=== PATIENT | female | born 1960 | race American Indian/Alaskan Native ===

== ENCOUNTER 2016-11-10 00:45 | Inpatient (IN) | payer OTHER ==
[2016-11-10 00:46] VITALS: BMI 23.0
[2016-11-10] MEDS ORDERED: Nitroglycerin 2% Ointment Foilpak UD TOP STA (01:15)
[2016-11-10] MEDS ORDERED: Nitroglycerin 2% Ointment Foilpak UD TOP ONE (01:16)
--- NOTE | 2016-11-10 01:18 | C.PDOC ---
History Of Present Illness A 55 y/o F c/o anterior chest pain for a hour and a half. Notes pain as pressure to the chest that is more on the right. Denies SOB, palpitations, lightheadedness, weakness, numbness, or any other complaints. Time Seen by Provider: 11/10/16 01:20 Chief Complaint (Nursing): Chest Pain History Per: Patient History/Exam Limitations: no limitations Onset/Duration Of Symptoms: Hrs (hour and a half) Current Symptoms Are (Timing): Still Present Severity: Mild Nitro Therapy Administered: 3, Per EMS, Partial Relief Additional History Per: Patient Past Medical History Reviewed: Historical Data, Nursing Documentation, Vital Signs Vital Signs: Last Vital Signs Temp 97.8 F 11/10/16 00:52 Pulse 70 11/10/16 02:13 Resp 14 11/10/16 02:13 BP 136/83 11/10/16 02:13 Pulse Ox 96 11/10/16 02:13 - Medical History PMH: Anemia, Asthma, Fibromyalgia, Fractures (RIGHT ARM), HTN, Peripheral Edema (DUE TO FIBROMYALGIA) Denies: Chronic Kidney Disease Surgical History: Endoscopy - Urlist Procedures ENDOSC POLYPECTOMY OF LG INTEST (07/20/99) ESOPHAGOGASTRODUODENOSCOPY [EGD] W/CLOSED BIOPSY (07/20/99) LAPAROSCOPIC ROBOTIC ASSISTED PROCEDURE (02/11/14) LAPAROSCOPIC TOTAL ABDOMINAL HYSTERECTOMY (02/11/14) PACKED CELL TRANSFUSION (01/09/14) Family History: States: Unknown Family Hx - Social History Hx Tobacco Use: No Hx Alcohol Use: Yes Hx Substance Use: No - Immunization History Hx Tetanus Toxoid Vaccination: No Hx Influenza Vaccination: No Hx Pneumococcal Vaccination: No Review Of Systems Except As Marked, All Systems Reviewed And Found Negative. Cardiovascular: Positive for: Chest Pain. Negative for: Palpitations, Light Headedness Respiratory: Negative for: Shortness of Breath Neurological: Negative for: Weakness, Numbness Physical Exam - Physical Exam Appears: Non-toxic, In Acute Distress (Mild distress) Skin: Warm, Dry Head: Atraumatic, Normacephalic Chest: Tenderness (Tenderness to palpation to the anterior chest wall) Cardiovascular: Rhythm Regular Respiratory: Normal Breath Sounds, No Rales, No Rhonchi, No Wheezing Extremity: Normal ROM, No Tenderness Neurological/Psych: Oriented x3, Normal Speech, Normal Cognition ED Course And Treatment - Laboratory Results Result Diagrams: 11/10/16 01:21 11/10/16 01:21 ECG: Interpreted By Me, Viewed By Me ECG Rhythm: Sinus Rhythm ECG Interpretation: No Acute Changes Interpretation Of ECG: NSR, poor R-wave progression V! to V4, borderline tracings Rate From EC O2 Sat by Pulse Oximetry: 97 (RA) Pulse Ox Interpretation: Normal Medical Decision Making Medical Decision Making: Impression: A 55 y/o F c/o anterior chest pain for a hour and a half. Plans: -CXR -EKG -Blood labs -CXR -Toradol -Nitro -IV fluids Nitro glycerin x4 and 324 aspirin given in the field by ALS. Disposition Discussed With Dr.: Donald Powell Doctor Will See Patient In The: Hospital Counseled Patient/Family Regarding: Diagnosis - Disposition Disposition: HOSPITALIZED Disposition Time: 02:52 Condition: STABLE Forms: [facility] (Portuguese) - POA Present On Arrival: None - Clinical Impression Clinical Impression: Chest pain - Scribe Statement The provider has reviewed the documentation as recorded by the Scribe Melody mahan All medical record entries made by the Scribe were at my direction and personally dictated by me. I have reviewed the chart and agree that the record accurately reflects my personal performance of the history, physical exam, medical decision making, and the department course for this patient. I have also personally directed, reviewed, and agree with the discharge instructions and disposition.
[2016-11-10 01:26] LABS: BASO # 0.1 K/uL (0.0-0.2); BASO % 0.5 % (0.0-2.0); EOS # 0.1 K/uL (0.0-0.7); EOS % 0.8 % (0.0-4.0); HEMOGLOBIN 14.6 g/dL (11.0-16.0); LYMPH # 3.2 K/uL (1.0-4.3); LYMPH % 30.2 % (20.0-40.0); MEAN CELL VOLUME 82.1 fL (81.0-99.0); MEAN CORPUSCULAR HEMOGLOBIN 28.1 pg (27.0-31.0); MEAN CORPUSCULAR HGB CONC 34.2 g/dL (33.0-37.0); MEAN PLATELET VOLUME 10.3 fL (7.2-11.7); MONO # 0.7 K/uL (0.0-0.8); MONO % 6.2 % (0.0-10.0); NEUT # 6.6 K/uL (1.8-7.0); NEUT % 62.3 % (50.0-75.0); NRBC % 0.1 % (0.0-2.0); RBC 5.2 Mil/uL (3.80-5.20); RED CELL DISTRIBUTION WIDTH 14.1 % (11.5-14.5); WHITE BLOOD COUNT 10.5 K/uL (4.8-10.8)
[2016-11-10 01:37] LABS: SQUAMOUS EPITHIAL 3 /hpf (0-5); URINE BILIRUBIN NEGATIVE (NEGATIVE); URINE BLOOD 1+ (NEGATIVE); URINE CLARITY Clear (Clear); URINE COLOR Straw (YELLOW); URINE GLUCOSE (UA) NORMAL (Normal); URINE LEUKOCYTE ESTERASE NEG Leu/uL (Negative); URINE NITRATE NEGATIVE (NEGATIVE); URINE PROTEIN NEGATIVE (NEGATIVE); URINE UROBILINOGEN NORMAL mg/dL (0.2-1.0)
[2016-11-10 01:41] LABS: ALBUMIN 3.9 g/dL (3.5-5.0)
[2016-11-10 01:43] LABS: GFR AFRICAN-AMERICAN > 60; GFR NON-AFRICAN AMERICAN > 60
[2016-11-10 01:44] LABS: ALB/GLOB RATIO 1.1 (1.0-2.1); ALT/SGPT 21 U/L (9-52); AST/SGOT 22 U/L (14-36); BLOOD UREA NITROGEN 12 mg/dL (7-17)
[2016-11-10 01:45] LABS: CALCIUM 9.6 mg/dl (8.6-10.4)
[2016-11-10] MEDS ORDERED: Potassium Chloride 20 mEq ER Tab PO STA (02:12)
[2016-11-10] MEDS ORDERED: Potassium Chloride 20 mEq ER Tab PO ONE (02:20)
--- NOTE | 2016-11-10 02:49 | RAD ---
EXAM: XR Chest, 1 View CLINICAL HISTORY: 55 years old, female; Pain; Chest pain TECHNIQUE: Frontal view of the chest. EXAM DATE/TIME: 11/10/2016 1:15 AM COMPARISON: CR - CHEST TWO VIEWS (PA/LAT) 06/14/2015 4:23:19 PM FINDINGS: The mediastinal cardiac silouette is normal in size and unchanged. The lungs appears similar to prior study. No effusions are identified. Again seen is mild levoscoliosis. IMPRESSION: No acute findings.
--- NOTE | 2016-11-10 04:01 | CP.PCM.HP ---
<Evens Mayer - Last Filed: 11/10/16 09:19> History of Present Illness - History of Present Illness History of Present Illness: CC: chest pain since 1:00 am HPI: Patient is a 55 year old female with PMHx Anemia, Asthma, Fibromyalgia, HTN, LE Peripheral Neuropathy (s/p hysterectomy) - who comes in to the emergency department complaining of chest pain that began around 1:00 am this morning. The patient reports that she was lying in bed and when she got up to use the bathroom the pain suddenly came on. Patient describes the pain as sharp, located primarily on the right side of her chest and rates it a 7/10. It is exacerbated by deep inspiration, and she denies any radiation of pain. While in transit to the hospital, patient reports she received Nitroglycerin x3 which she states made the pain better and currently describes her pain as more diffuse and rated 3/10. Patient also reports that she experienced shortness of breath associated with the chest pain. Patient also complains of a rash on the extensor surface of the right wrist. Patient admits to headaches for the past 3 days, which she attributes to her uncontrolled BP for the past 3 days (measured at home). Patient also c/o rash on wrist, mild gas pain in all quadrants, mild low back pain. Patient denies fevers, chills, cough, nausea, vomiting, constipation or diarrhea, any additional complaints. ED Course: Nitro glycerin x4 and 324 aspirin given in the field by ALS. Kdur 20 ; Toradol 30 IVP PMHx: Anemia, Asthma, Fibromyalgia, HTN, LE Peripheral Neuropathy (s/p hysterectomy) PSHx: Partial Hysterectomy 2013 Meds: Lopressor 100mg PO qd; HCTZ 12.5mg PO qd; Albuterol HFA 2puff PRN Allergies: NKDA FamHx: Mom CHF (alive, 90's); Dad Colon CA ( 56); Sister renal CA ( 56) ; Sister Uterine CA (alive, diagnosed recently at 62). SocHx: Denies tobacco or illicit drug use. Lives with family. Works as director of [employer]. PMD: Renee Cazares ([facility]) Review of Systems: -Gen: +headache. denies fever, chills, lethargy, weakness, dizziness. -HEENT: denies change in vision, change in hearing, sore throat, dysphagia, congestion. -Cardio: +chest pain; +SOB denies palpitations, lower extremity edema, orthopnea. -Resp: +SOB, +mucous (mild), +cough (mild), +pain on inspiration; denies hemoptysis, wheezing, congestion. -GI: pt denies abdominal pain, nausea/vomiting, diarrhea/constipation, hematochezia. -: pt denies dysuria, urinary freq, incontinence, hematuria, change in urinary stream. -MSK: denies back pain, muscle weakness, radiating pain. -Skin: +rash R wrist; denies itching, lesions. -Neuro: denies confusion, numbness, tingling, focal weakness, radicular pain, syncope. -Psych: denies anxiety, depression, H/I, S/I, hallucinations. Present on Admission - Present on Admission Any Indicators Present on Admission: No Past Patient History - Tetanus Immunizations Tetanus Immunization: Unknown - Past Medical History & Family History Past Medical History?: Yes - Past Social History Smoking Status: Former Smoker - CARDIAC Hx Hypertension: Yes Hx Peripheral Edema: Yes (DUE TO FIBROMYALGIA) - PULMONARY Hx Asthma: Yes - NEUROLOGICAL Hx Neurological Disorder: No - HEENT Hx HEENT Problems: No - RENAL Hx Chronic Kidney Disease: No - ENDOCRINE/METABOLIC Hx Endocrine Disorders: No - HEMATOLOGICAL/ONCOLOGICAL Hx Anemia: Yes - INTEGUMENTARY Hx Dermatological Problems: Yes Hx Eczema: Yes (ARMS) - MUSCULOSKELETAL/RHEUMATOLOGICAL Hx Fractures: Yes (RIGHT ARM) - GASTROINTESTINAL Hx Gastrointestinal Disorders: No - GENITOURINARY/GYNECOLOGICAL Hx Genitourinary Disorders: Yes Other/Comment: FIBROID UTERUS, Fibromyalgia - PSYCHIATRIC Hx Substance Use: No - SURGICAL HISTORY Hx Hysterectomy: Yes - ANESTHESIA Hx Anesthesia: Yes Hx Anesthesia Reactions: Yes (VOMITTING/NAUSEA) Hx Malignant Hyperthermia: No Meds Allergies/Adverse Reactions: Allergies Allergy/AdvReac Type Severity Reaction Status Date / Time No Known Allergies Allergy Verified 11/10/16 00:57 Physical Exam - Constitutional Appears: Non-toxic, No Acute Distress - Head Exam Head Exam: ATRAUMATIC, NORMAL INSPECTION - Eye Exam Eye Exam: EOMI, Normal appearance, PERRL - ENT Exam ENT Exam: Mucous Membranes Moist - Neck Exam Neck exam: Negative for: Lymphadenopathy, Tenderness - Respiratory Exam Respiratory Exam: Clear to Auscultation Bilateral, NORMAL BREATHING PATTERN. absent: Rales, Rhonchi, Wheezes - Cardiovascular Exam Cardiovascular Exam: Bradycardia, +S1, +S2 - GI/Abdominal Exam GI & Abdominal Exam: Normal Bowel Sounds, Soft, Tenderness (mild tenderness in all 4 quadrants) - Extremities Exam Extremities exam: Positive for: normal inspection. Negative for: pedal edema, tenderness - Back Exam Back exam: NORMAL INSPECTION, tenderness (chronic, related to fibromyalgia). absent: CVA tenderness (L), CVA tenderness (R) - Neurological Exam Neurological exam: Alert, CN II-XII Intact, Oriented x3 - Psychiatric Exam Psychiatric exam: Normal Affect, Normal Mood - Skin Skin Exam: Dry, Intact, Normal Color, Warm Additional comments: rash on lateral R wrist, extensor surface 2cm x 2cm Results - Vital Signs Recent Vital Signs: Last Vital Signs Temp 97.5 F L 11/10/16 03:55 Pulse 56 L 11/10/16 03:55 Resp 20 11/10/16 03:55 BP 150/93 H 11/10/16 03:55 Pulse Ox 97 11/10/16 03:55 - Labs Result Diagrams: 11/10/16 07:07 11/10/16 07:07 Assessment & Plan - Assessment and Plan (Free Text) Assessment: Chest Pain * ED Course: Nitro glycerin x4 and 324 aspirin given in the field by ALS. Kdur 20; Toradol 30 IVP * CXR - negative * EKG - NSR, poor R-wave progression V1 to V4. Meets minimal voltage criteria for LVH. * Troponin negative x1, Ddimer <200 * f/u ROMIs + EKG x2 * f/u BNP, A1c, TSH, free T4, Lipids * ASA 81mg PO; Tylenol 650mg PO Q6H, PRN pain * Cardiology consult, Ameen, f/u recs * f/u Echo Hypertension * BP 186/114 on admission * Continue home meds: Lopressor 100mg PO qd; HCTZ 12.5mg PO qd * Start Lisinopril 2.5mg PO qd * monitor Asthma * Utilizes inhaler 2x per week during day. 1x per month at night. * Home med: Albuterol HFA 2puff PRN * monitor Prophylaxis * SCDs * Heparin 5k SC Q8 * Pepcid 20mg PO BID * Heart healthy diet - Date & Time Date: 11/10/16 Time: 04:00 <Donald Powell P - Last Filed: 11/11/16 06:13> Results - Vital Signs Recent Vital Signs: Last Vital Signs Temp 97.5 F L 11/10/16 03:55 Pulse 56 L 11/10/16 04:00 Resp 20 11/10/16 03:55 BP 150/93 H 11/10/16 03:55 Pulse Ox 97 11/10/16 03:55 - Labs Result Diagrams: 11/10/16 07:07 11/10/16 07:07 Attending/Attestation - Attestation I have personally seen and examined this patient.: Yes I have fully participated in the care of the patient.: Yes I have reviewed all pertinent clinical information: Yes Notes (Text): Assessment * Non reproducible sternal chest pain, negative initial troponin and or ischemia on EKG, DD of gerd esophageal spasm * LVH on EKG, with h/o htn, leg edema b/l suggestive of early htn related cardiomyopathy/chf * Head ache likely from nitro Plan * Serial enzymes * Echo * With LVH, leg edema, would be candidate for YASMINE * Empiric protonix, maalox, zofran
[2016-11-10] MEDS ORDERED: Albuterol HFA 90 mcg/actuation (8 g) IH PRN ×2 (04:25→16:15)
[2016-11-10] MEDS ORDERED: Pantoprazole 40 mg EC Tab PO ONE (06:15)
[2016-11-10] MEDS ORDERED: Aluminum Hydroxide/Magnesium Hydroxide Susp (30 mL) PO ONE (06:16)
[2016-11-10] MEDS ORDERED: Sodium Chloride 0.9% 1,000 ML IV ONE (06:48)
[2016-11-10 07:23] LABS: BASO % 0.5 % (0.0-2.0); EOS # 0.1 K/uL (0.0-0.7); EOS % 0.7 % (0.0-4.0); HEMOGLOBIN 13.9 g/dL (11.0-16.0); LYMPH # 2.3 K/uL (1.0-4.3); LYMPH % 25.8 % (20.0-40.0); MEAN CELL VOLUME 82.8 fL (81.0-99.0); MEAN CORPUSCULAR HGB CONC 33.8 g/dL (33.0-37.0); MEAN PLATELET VOLUME 10.3 fL (7.2-11.7); MONO # 0.6 K/uL (0.0-0.8); MONO % 7.4 % (0.0-10.0); NEUT # 5.8 K/uL (1.8-7.0); NEUT % 65.6 % (50.0-75.0); NRBC % 0.1 % (0.0-2.0); RBC 4.97 Mil/uL (3.80-5.20); RED CELL DISTRIBUTION WIDTH 14.2 % (11.5-14.5); WHITE BLOOD COUNT 8.8 K/uL (4.8-10.8)
[2016-11-10 07:37] LABS: ALBUMIN 3.6 g/dL (3.5-5.0)
[2016-11-10 07:40] LABS: ALB/GLOB RATIO 1.1 (1.0-2.1); ALT/SGPT 22 U/L (9-52); AST/SGOT 22 U/L (14-36); BLOOD UREA NITROGEN 11 mg/dL (7-17); GFR AFRICAN-AMERICAN > 60; GFR NON-AFRICAN AMERICAN > 60
[2016-11-10 07:41] LABS: CALCIUM 9.5 mg/dl (8.6-10.4); HDL CHOLESTEROL 51 mg/dL (30-70); MAGNESIUM 1.8 mg/dL (1.6-2.3)
[2016-11-10 07:52] LABS: LDL CHOLESTEROL 94 mg/dL (0-129)
[2016-11-10 09:26] LABS: CK-MB 0.76 ng/mL (0.0-3.38)
--- NOTE | 2016-11-10 10:16 | CP.PCM.CON ---
History of Present Illness - History of Present Illness History of Present Illness: Admitted with chest pain in the precordial region sharp without exacerbating factors Past history of asthma and systemic hypertension Past Patient History - Tetanus Immunizations Tetanus Immunization: Unknown - Past Medical History & Family History Past Medical History?: Yes - Past Social History Smoking Status: Former Smoker - CARDIAC Hx Hypertension: Yes Hx Peripheral Edema: Yes (DUE TO FIBROMYALGIA) - PULMONARY Hx Asthma: Yes - NEUROLOGICAL Hx Neurological Disorder: No - HEENT Hx HEENT Problems: No - RENAL Hx Chronic Kidney Disease: No - ENDOCRINE/METABOLIC Hx Endocrine Disorders: No - HEMATOLOGICAL/ONCOLOGICAL Hx Anemia: Yes - INTEGUMENTARY Hx Dermatological Problems: Yes Hx Eczema: Yes (ARMS) - MUSCULOSKELETAL/RHEUMATOLOGICAL Hx Fractures: Yes (RIGHT ARM) - GASTROINTESTINAL Hx Gastrointestinal Disorders: No - GENITOURINARY/GYNECOLOGICAL Hx Genitourinary Disorders: Yes Other/Comment: FIBROID UTERUS, Fibromyalgia - PSYCHIATRIC Hx Substance Use: No - SURGICAL HISTORY Hx Hysterectomy: Yes - ANESTHESIA Hx Anesthesia: Yes Hx Anesthesia Reactions: Yes (VOMITTING/NAUSEA) Hx Malignant Hyperthermia: No Meds Allergies/Adverse Reactions: Allergies Allergy/AdvReac Type Severity Reaction Status Date / Time No Known Allergies Allergy Verified 11/10/16 00:57 - Medications Medications: Current Medications Acetaminophen (Tylenol 325mg Tab) 650 mg PO Q6 PRN PRN Reason: Pain, moderate (4-7) Last Admin: 11/10/16 08:07 Dose: 650 mg Albuterol (Ventolin Hfa 90 Mcg/Actuation (8 G)) 2 puff IH PRN PRN PRN Reason: Wheezing Aspirin (Aspirin Chewable) 81 mg PO DAILY [facility] Last Admin: 11/10/16 09:13 Dose: 81 mg Famotidine (Pepcid) 20 mg PO BID [facility] Last Admin: 11/10/16 09:13 Dose: 20 mg Heparin Sodium (Porcine) (Heparin) 5,000 units SC Q8 [facility] Hydrochlorothiazide (Microzide) 12.5 mg PO DAILY [facility] Last Admin: 11/10/16 09:15 Dose: 12.5 mg Lisinopril (Zestril) 2.5 mg PO DAILY [facility] Metoprolol Tartrate (Lopressor) 100 mg PO DAILY [facility] Last Admin: 11/10/16 09:13 Dose: 100 mg Results - Vital Signs Recent Vital Signs: Last Vital Signs Temp 98 F 11/10/16 09:10 Pulse 58 L 11/10/16 09:10 Resp 21 11/10/16 09:10 BP 187/102 H 11/10/16 09:16 Pulse Ox 98 11/10/16 09:10 - Labs Result Diagrams: 11/10/16 07:07 11/10/16 07:07 Labs: Laboratory Results - last 24 hr 11/10/16 11/10/16 11/10/16 07:07 07:07 07:07 WBC 8.8 RBC 4.97 Hgb 13.9 Hct 41.2 MCV 82.8 MCH 28.0 MCHC 33.8 RDW 14.2 Plt Count 170 MPV 10.3 Neut % (Auto) 65.6 Lymph % (Auto) 25.8 [place] % (Auto) 7.4 Eos % (Auto) 0.7 Baso % (Auto) 0.5 Neut # 5.8 Lymph # 2.3 [place] # 0.6 Eos # 0.1 Baso # 0.0 APTT 34 Sodium 138 Potassium 3.7 Chloride 101 Carbon Dioxide 25 Anion Gap 16 BUN 11 Creatinine 0.6 L Est GFR ( Amer) > 60 Est GFR (Non-Af Amer) > 60 Random Glucose 93 Calcium 9.5 Phosphorus 3.0 Magnesium 1.8 Total Bilirubin 0.6 AST 22 ALT 22 Alkaline Phosphatase 43 Total Creatine Kinase 69 CK-MB (Mass) 0.76 Troponin I, Quant < 0.0120 NT-Pro-B Natriuret Pep Total Protein 6.8 Albumin 3.6 Globulin 3.2 Albumin/Globulin Ratio 1.1 Triglycerides 63 Cholesterol 165 LDL Cholesterol Direct 94 HDL Cholesterol 51 TSH 3rd Generation 4.56 11/10/16 07:07 WBC RBC Hgb Hct MCV MCH MCHC RDW Plt Count MPV Neut % (Auto) Lymph % (Auto) [place] % (Auto) Eos % (Auto) Baso % (Auto) Neut # Lymph # [place] # Eos # Baso # APTT Sodium Potassium Chloride Carbon Dioxide Anion Gap BUN Creatinine Est GFR ( Amer) Est GFR (Non-Af Amer) Random Glucose Calcium Phosphorus Magnesium Total Bilirubin AST ALT Alkaline Phosphatase Total Creatine Kinase CK-MB (Mass) Troponin I, Quant NT-Pro-B Natriuret Pep 74.3 Total Protein Albumin Globulin Albumin/Globulin Ratio Triglycerides Cholesterol LDL Cholesterol Direct HDL Cholesterol TSH 3rd Generation Assessment & Plan - Assessment and Plan (Free Text) Assessment: Chest pain syndrome, no evidence of myocardial injury on a background of some vascular risk factors Plan: Troponin Echocardiogram
[2016-11-10] MEDS ORDERED: Tramadol 25 mg PO ONE (12:06)
--- NOTE | 2016-11-10 12:08 | PCM.RRTMUL ---
HOP STRAINER Nurses Assessment - Vital Signs Blood Pressure:: 187/102 I.Reason for HOP STRAINER - A) Acute Change in Patient: (Select all that apply): Chest Pain Subjective: Rapid response called on 11/10/16 Rapid called for HTN emergency and sudden pain in arms/legs. Vitals: BP 243/111 , HR 56, RR 18, 98% O2. Patient reports pain in her legs traveling up to her lower back. She rates the pain as 10/10. She denies numbness, weakness/ tingling. She reports occasional, sharp stabbing chest pain, and lower back pain. Pt has history of peripheral neuropathy, and fibromyalgia. She states the pain feels "different than her typical pain." She denies taking home meds for the fibromyalgia. - A) Initial Vital Signs: Blood Pressure: 243/117 Pulse Rate: 58 Respiratory Rate: 18 Temperature: 98.2 F O2 Sat by Pulse Oximetry: 100 - B) Neurological Status (Select all that apply): Alert, Oriented, Verbal - C) Respiratory Oxygen Delivery Method: Nasal Cannula @L/min (2L ) Oxygen Flow Rate: 2 - Constitutional Appears: Non-toxic, No Acute Distress (pt in pain, tearful, ) - Head Head Exam: ATRAUMATIC, NORMAL INSPECTION, NORMOCEPHALIC - Eyes Eye Exam: EOMI, PERRL. absent: Scleral icterus - Respiratory Exam Respiratory Exam: Clear to Ausculation Bilateral, NORMAL BREATHING PATTERN. absent: Accessory Muscle Use, Rales, Rhonchi, Wheezes - Cardiovascular Exam Cardiovascular Exam: Bradycardia (58), +S1, +S2 - GI/Abdominal Exam GI & Abdominal Exam: Soft, Normal Bowel Sounds. absent: Tenderness - Neurological Exam Neurological Exam: Alert, Awake, Oriented x3 - Extremities Exam Extremities Exam: Normal Inspection. absent: Tenderness Plan - A. End of HOP STRAINER Vital Signs: Blood Pressure: 181/99 Pulse Rate: 60 Respiratory Rate: 18 Temperature: 98.6 F O2 Sat by Pulse Oximetry: 100 - B. Assessment of Findings&Treatment Plan Assessment Acute pain Patient having pain response Toradol 30mg IV once in ED Ultram 25mg PO STAT Chest Pain * CT Chest W/contrast for dissection * CXR from ED - negative * EKG - NSR, poor R-wave progression V1 to V4. Meets minimal voltage criteria for LVH. * Troponin negative x2, Ddimer <200 Hypertension - Pain component * BP 186/114 on admission, 243/117 * Continue home meds: Lopressor 100mg PO qd; HCTZ 12.5mg PO qd * Start Lisinopril 10mg PO Daily * Hydralazine 10mg IV Q6H Daily * monitor
--- NOTE | 2016-11-10 12:59 | CP.PCM.PN ---
Subjective - Date & Time of Evaluation Date of Evaluation: 11/10/16 Time of Evaluation: 12:50 - Subjective Subjective: PGY-[address] Pierre's ervice: Pt seen and examined at bedside. Nursing reports blood pressure elevated this AM , 180/104. Scheduled meds given early. Patient denies chest pain at this time, but states she feels like gas pain. She admits passing excessive flatulence this AM. Pt reports pain in legs and arms, but this is chronic finding as patient has fibromyalgia and peripheral neuropathy. Patient admits bilateral headache, helped by tylenol. She denies fever, chills, chest pain, palpitations , SOB. Objective - Vital Signs/Intake and Output Vital Signs (last 24 hours): Temp Pulse Resp BP Pulse Ox 98.6 F 60 18 181/99 H 100 11/10/16 12:49 11/10/16 12:49 11/10/16 12:49 11/10/16 12:49 11/10/16 12:18 - Medications Medications: Current Medications Acetaminophen (Tylenol 325mg Tab) 650 mg PO Q6 PRN PRN Reason: Pain, moderate (4-7) Last Admin: 11/10/16 08:07 Dose: 650 mg Albuterol (Ventolin Hfa 90 Mcg/Actuation (8 G)) 2 puff IH PRN PRN PRN Reason: Wheezing Aspirin (Aspirin Chewable) 81 mg PO DAILY [facility] Last Admin: 11/10/16 09:13 Dose: 81 mg Famotidine (Pepcid) 20 mg PO BID [facility] Last Admin: 11/10/16 09:13 Dose: 20 mg Heparin Sodium (Porcine) (Heparin) 5,000 units SC Q8 [facility] Hydralazine HCl (Apresoline) 10 mg IVP Q6H PRN PRN Reason: Systolic Blood Pressure Last Admin: 11/10/16 12:00 Dose: 10 mg Hydrochlorothiazide (Microzide) 12.5 mg PO DAILY [facility] Last Admin: 11/10/16 09:15 Dose: 12.5 mg Lisinopril (Zestril) 2.5 mg PO DAILY [facility] Last Admin: 11/10/16 12:03 Dose: 2.5 mg Metoprolol Tartrate (Lopressor) 100 mg PO DAILY [facility] Last Admin: 11/10/16 09:13 Dose: 100 mg - Labs Labs: 07/27/17 07:07 11/10/16 07:07 APTT 34 SECONDS (21-34) 11/10/16 07:07 - Constitutional Appears: Non-toxic, No Acute Distress - Head Exam Head Exam: ATRAUMATIC, NORMAL INSPECTION, NORMOCEPHALIC - Eye Exam Eye Exam: EOMI. absent: Scleral icterus Pupil Exam: PERRL - ENT Exam ENT Exam: Mucous Membranes Moist - Neck Exam Neck Exam: Full ROM - Respiratory Exam Respiratory Exam: Clear to Ausculation Bilateral, NORMAL BREATHING PATTERN. absent: Rales, Rhonchi, Wheezes - Cardiovascular Exam Cardiovascular Exam: Bradycardia, +S1, +S2 - GI/Abdominal Exam GI & Abdominal Exam: Soft, Normal Bowel Sounds. absent: Tenderness - Extremities Exam Extremities Exam: Normal Inspection, Tenderness (chronic peripheral neuropathy) - Back Exam Back Exam: absent: CVA tenderness (L), CVA tenderness (R) - Neurological Exam Neurological Exam: Alert, Awake, Oriented x3 - Psychiatric Exam Psychiatric exam: Normal Affect, Normal Mood - Skin Skin Exam: Normal Color, Warm Assessment and Plan - Assessment and Plan (Free Text) Plan: Chest Pain * Radiating to back * f/u CT Chest w. Contrast * ED Course: Nitro glycerin x4 and 324 aspirin given in the field by ALS. * CXR (11/10/16) - no acute findings * EKG - NSR, poor R-wave progression V1 to V4. Meets minimal voltage criteria for LVH. * Troponin negative x 3, Ddimer <200 * BNP: 74.3 * f/u A1c * f/u TSH, free T4 * Lipids: WNL * ASA 81mg PO * Tylenol 650mg PO Q6H, PRN pain * Cardiology consult, Ameen: * no evidence of IN; some vascular risk factors * f/u Echo Body Aches * Hx of fibromyalgia * Ultram 25mg PO Q6H PRN Hypertension * BP 186/114 on admission; BP 220/120 * Continue home meds: Lopressor 100mg PO qd; HCTZ 12.5mg PO qd * Start Lisinopril 10mg PO qd * monitor Asthma * Utilizes inhaler 2x per week during day. 1x per month at night. * Home med: Albuterol HFA 2puff PRN * monitor Prophylaxis * SCDs * Heparin 5k SC Q8 * Pepcid 20mg PO BID * Heart healthy diet
[2016-11-10] MEDS ORDERED: Iodixanol 320 MG/ML 100 ML BOTTLE IV ONE (14:58)
[2016-11-10] MEDS ORDERED: Tramadol 25 mg PO SCH (16:15)
--- NOTE | 2016-11-10 16:16 | CT ---
CT dissection study Indication: r/o dissection; chest pain to back; HTN emergency Technique: Contiguous axial images of the chest, abdomen, and pelvis. Coronal and Sagittal reformats generated and reviewed. This CT exam was performed using 1 or more of the following dose reduction techniques: Automated exposure control, adjustment of the MAA and/or kV according to patient size, and/or use of iterative reconstruction technique. Contrast: Oral contrast was not administered. 100 cc Visipaque 320 IV. Radiation dose: Total exam DLP = 1053.06 MGy-cm. Comparison: Chest x-ray performed 11/10/16 Findings: Visualized portions of the inferior thyroid gland appear unremarkable. The mediastinal and hilar vascular structures appear within normal limits. The heart appears within normal limits of size. The thoracic and abdominal aorta appears within normal limits of caliber without evidence of aneurysmal dilatation or dissection. No focal consolidation. No pleural effusion. No pneumothorax. 3 mm right middle lobe pulmonary nodule (series 8, image 67). Small hiatal hernia/ distal esophageal wall thickening. 12 mm low-density lesion, right kidney measures approximately 14 HU, appear cystic. The kidneys enhance symmetrically. No hydronephrosis or obstructing calculi identified. Hypoattenuation of the liver compatible with hepatic steatosis. 16 mm rounded soft tissue density adjacent to the pancreatic tail similar in appearance to CT performed 01/06/12; this finding is favored to reflect a splenule rather than a pancreatic mass. The spleen, pancreas, adrenal glands, and gallbladder appear unremarkable. The stomach is nondistended. Small hiatal hernia. The included upper abdominal bowel loops appear within normal limits of caliber without evidence of intestinal obstruction. There is no definite free air. Subcutaneous air and soft tissue stranding noted within the right lower quadrant subcutaneous soft tissues; correlate for history of recent injections. Degenerative changes of the spine. Scoliosis with curvature of the convex the left. Impression: The thoracic and abdominal aorta appears within normal limits of caliber without evidence of aneurysmal dilatation or dissection. 3 mm right middle lobe pulmonary nodule. In the absence of risk factors for lung cancer, no specific imaging follow-up is required. If the patient is a smoker or has other risk factors, follow-up CT at 12 months is recommended to document stability. Small hiatal hernia/distal esophageal wall thickening. Hepatic steatosis. 16 mm rounded soft tissue density adjacent to the pancreatic tail similar in appearance to CT performed 01/06/12; this finding is favored to reflect a splenule rather than a pancreatic mass. Subcutaneous air and soft tissue stranding noted within the right lower quadrant subcutaneous soft tissues; correlate for history of recent injections. Scoliosis.
[2016-11-10 17:16] LABS: CK-MB 0.67 ng/mL (0.0-3.38)
[2016-11-10] MEDS: Tramadol 25 mg PO PRN (18:32)
--- NOTE | 2016-11-11 07:13 | CP.PCM.PN ---
<MauricioarnulfoArcenio - Last Filed: 11/11/16 15:58> Subjective - Date & Time of Evaluation Date of Evaluation: 11/11/16 Time of Evaluation: 07:10 - Subjective Subjective: PGY-[address] Jc's Service: Patient was seen and examined at bedside, patient was resting comfortably and in no acute distress. Patient reports that she is no longer experiencing chest pain. Patient also states that she is no longer feeling the pain in the legs that she was experiencing yesterday. Patient does admit to headaches that are located in the frontal area that sometimes and sometimes shoot up the back of the head. Headaches are made better with Tylenol. Patient also reports that she has been feeling nauseous for the past day which occurs right after taking her medications. Patient states that due to the nausea she has been eating less, but what she does eat she is able to tolerate. Patient is sleeping well throughout the night, reports no problems toileting and her LBM was yesterday afternoon. Patient denies fevers, chills, chest pain, palpitations, SOB, abdominal pain, vomiting, constipation, diarrhea. Objective - Vital Signs/Intake and Output Vital Signs (last 24 hours): Temp Pulse Resp BP Pulse Ox 97.5 F L 54 L 20 153/90 H 98 11/10/16 23:59 11/11/16 04:59 11/10/16 23:59 11/10/16 23:59 11/10/16 23:59 - Medications Medications: Current Medications Acetaminophen (Tylenol 325mg Tab) 650 mg PO Q6 PRN PRN Reason: Pain, Mild (1-3) Last Admin: 11/10/16 18:32 Dose: 650 mg Albuterol (Ventolin Hfa 90 Mcg/Actuation (8 G)) 2 puff IH RQ4 PRN PRN Reason: Wheezing Aspirin (Aspirin Chewable) 81 mg PO DAILY [facility] Last Admin: 11/10/16 09:13 Dose: 81 mg Famotidine (Pepcid) 20 mg PO BID [facility] Last Admin: 11/10/16 18:31 Dose: 20 mg Gabapentin (Neurontin) 100 mg PO TID [facility] Last Admin: 11/10/16 22:46 Dose: 100 mg Heparin Sodium (Porcine) (Heparin) 5,000 units SC Q8 [facility] Last Admin: 11/11/16 05:26 Dose: 5,000 units Hydralazine HCl (Apresoline) 10 mg IVP Q6H PRN PRN Reason: Systolic Blood Pressure Last Admin: 11/10/16 12:00 Dose: 10 mg Hydrochlorothiazide (Microzide) 12.5 mg PO DAILY [facility] Last Admin: 11/10/16 09:15 Dose: 12.5 mg Lisinopril (Zestril) 2.5 mg PO DAILY [facility] Last Admin: 11/10/16 12:03 Dose: 2.5 mg Metoprolol Tartrate (Lopressor) 100 mg PO DAILY [facility] Last Admin: 11/10/16 09:13 Dose: 100 mg Tramadol HCl (Ultram) 25 mg PO Q6H PRN PRN Reason: Pain, moderate (4-7) Last Admin: 11/10/16 18:32 Dose: 25 mg - Labs Labs: 11/10/16 07:07 11/10/16 07:07 APTT 34 SECONDS (21-34) 11/10/16 07:07 - Constitutional Appears: Non-toxic, No Acute Distress - Head Exam Head Exam: ATRAUMATIC, NORMAL INSPECTION, NORMOCEPHALIC Additional comments: Pt reports pain on palpation of pain - Eye Exam Eye Exam: EOMI Pupil Exam: PERRL - ENT Exam ENT Exam: Mucous Membranes Moist - Neck Exam Neck Exam: Full ROM. absent: Lymphadenopathy - Respiratory Exam Respiratory Exam: Clear to Ausculation Bilateral, NORMAL BREATHING PATTERN. absent: Rales, Rhonchi, Wheezes - Cardiovascular Exam Cardiovascular Exam: REGULAR RHYTHM, +S1, +S2 - GI/Abdominal Exam GI & Abdominal Exam: Soft, Normal Bowel Sounds. absent: Tenderness - Neurological Exam Neurological Exam: Alert, Awake, Oriented x3 - Psychiatric Exam Psychiatric exam: Normal Affect, Normal Mood - Skin Skin Exam: Normal Color, Warm Assessment and Plan - Assessment and Plan (Free Text) Plan: Chest Pain Admit to telemetry * Radiating to back CT Chest w. Contrast (11/11/16): Thoracic and abdominal aorta appear within normal limits of caliber w/o aneurysmal dilatatoin or dissection. 3 mm right middle lobe pulmonary nodule. In absence of risk factors for lung CA, no imaging required. If pt smoker, follow up CT at 12 months recommended. Small hiatal hernia/distal esophageal wall thickening. Hepatic steatosis. 16mm rounded soft tissue density adjacent to pancreatic tail similar to CT performed 01/06/12, this finding favored to reflect a splenule rather than pancreatic mass. Subcutaneous air and soft tissue stranding noted within right lower quadrant subcutaneous soft tissues, correlate for recent injections. Scoliosis. (see full report) * CXR (11/10/16) - no acute findings * ED Course: Nitro glycerin x4 and 324 aspirin given in the field by ALS. * EKG - NSR, poor R-wave progression V1 to V4. Meets minimal voltage criteria for LVH. * Troponin negative x 3, Ddimer <200 * BNP: 74.3 * A1c: 5.6 * TSH, free T4: WNL * D-dimer: negative * Lipids: WNL * ASA 81mg PO * Tylenol 650mg PO Q6H, PRN pain * Cardiology consult, Ameen: * no evidence of [place]; some vascular risk factors * f/u Echo Headaches * Persistent headache for 3 days * f/u CT head Body Aches * Hx of fibromyalgia, peripheral neuropathy * has tried Lyrica, Gabapentin in the past * Ultram 25mg PO Q6H PRN Pulmonary Nodule CT Chest w. Contrast (11/11/16): In absence of risk factors for lung CA, no imaging required. If pt smoker, follow up CT at 12 months recommended. - pt is non-smoker Mural Thickening CT Chest w. Contrast (11/11/16): Small hiatal hernia/distal esophageal wall thickening. - pt should follow GI as outpatient Hypertension * Better controlled * BP 186/114 on admission; BP 220/120 * Continue home meds: Lopressor 100mg PO qd * Increase HCTZ to 25mg PO Daily * Start Lisinopril 10mg PO qd * monitor Asthma * Utilizes inhaler 2x per week during day. 1x per month at night. * Home med: Albuterol HFA 2puff PRN * monitor Prophylaxis * SCDs * Heparin 5k SC Q8 * Pepcid 20mg PO BID * Heart healthy diet Discussed with Dr. Babita Taylor PGY-1 <Mireille Jc V - Last Filed: 11/11/16 19:02> Objective - Vital Signs/Intake and Output Vital Signs (last 24 hours): Temp Pulse Resp BP Pulse Ox 97.9 F 56 L 20 167/100 H 97 11/11/16 15:56 11/11/16 15:56 11/11/16 15:56 11/11/16 15:56 11/11/16 15:56 - Medications Medications: Current Medications Acetaminophen (Tylenol 325mg Tab) 650 mg PO Q6 PRN PRN Reason: Pain, Mild (1-3) Last Admin: 11/10/16 18:32 Dose: 650 mg Albuterol (Ventolin Hfa 90 Mcg/Actuation (8 G)) 2 puff IH RQ4 PRN PRN Reason: Wheezing Aspirin (Aspirin Chewable) 81 mg PO DAILY [facility] Last Admin: 11/11/16 10:42 Dose: 81 mg Famotidine (Pepcid) 20 mg PO BID [facility] Last Admin: 11/11/16 18:38 Dose: 20 mg Gabapentin (Neurontin) 100 mg PO TID [facility] Last Admin: 11/11/16 18:38 Dose: 100 mg Heparin Sodium (Porcine) (Heparin) 5,000 units SC Q8 [facility] Last Admin: 11/11/16 14:44 Dose: 5,000 units Hydralazine HCl (Apresoline) 10 mg IVP Q6H PRN PRN Reason: Systolic Blood Pressure Last Admin: 11/10/16 12:00 Dose: 10 mg Hydrochlorothiazide (Hydrodiuril) 25 mg PO DAILY [facility] Lisinopril (Zestril) 10 mg PO DAILY [facility] Last Admin: 11/11/16 10:42 Dose: 10 mg Metoprolol Tartrate (Lopressor) 100 mg PO DAILY [facility] Last Admin: 11/11/16 10:42 Dose: 100 mg Tramadol HCl (Ultram) 25 mg PO Q6H PRN PRN Reason: Pain, moderate (4-7) Last Admin: 11/11/16 18:38 Dose: 25 mg - Labs Labs: 11/11/16 08:10 11/11/16 08:10 APTT 34 SECONDS (21-34) 11/10/16 07:07 Attending/Attestation - Attestation I have personally seen and examined this patient.: Yes I have fully participated in the care of the patient.: Yes I have reviewed all pertinent clinical information, including history, physical exam and plan: Yes Notes (Text): Patient seen, examined and case discussed with day-time resident. Patient reports persistent headache in spite of tylenol, all over the head, occipital, and frontal. Patient reports she is sleep adequately and reporting associated nausea but has not vomitted. Patient reports has had this headache couple days prior to admission. Patient reports normally she does not have headache. Patient has not received any nitroglycerin. patient ordered for CT head w/o contrast r/o abnormality. Patient denies chest pain, denies shortness of breath, denies palpitations, reports nausea but is tolerating the tomato soup (2nd helping) at bedside, denies constipation, denies BRBPR, denies dysuria, and denies abdominal pain. Patient is pending echocardiogram official report. Assessment/Plan 1) Chest Pain * Cardiology (Dr. Villanueva) help appreciated CT Chest w. Contrast (11/11/16): Thoracic and abdominal aorta appear within normal limits of caliber w/o aneurysmal dilatatoin or dissection. 3 mm right middle lobe pulmonary nodule. In absence of risk factors for lung CA, no imaging required. If pt smoker, follow up CT at 12 months recommended. Small hiatal hernia/distal esophageal wall thickening. Hepatic steatosis. 16mm rounded soft tissue density adjacent to pancreatic tail similar to CT performed 01/06/12, this finding favored to reflect a splenule rather than pancreatic mass. Subcutaneous air and soft tissue stranding noted within right lower quadrant subcutaneous soft tissues, correlate for recent injections. Scoliosis. (see full report) * CXR (11/10/16) - no acute findings * ED Course: Nitro glycerin x4 and 324 aspirin given in the field by ALS. * EKG - NSR, poor R-wave progression V1 to V4. Meets minimal voltage criteria for LVH. * Troponin negative x 3, Ddimer <200 * BNP: 74.3; a1c: 5.6; TSH, free T4: WNL; d-dimer: negative * ADDISON: X3 negative * Lipid panel: T, Cholesterol: 165, LDL: 94, HDL: 51 * Aspirin 81mg PO daily * Pending echocardiogram 2) Impaired glucose tolerance * A1c: 5.6 * Will need monitoring; 1 year follow-up a1c to avoid overt diabetes 3) Persistent Headache * Persistent headache for 3 days; refractory to Tylenol; denies photophobia, phonophobia * Neurology (Dr. Waller) construction materials tester--f/u recommendations * f/u CT head w/o contrast 4) Hx of fibromyalgia, peripheral neuropathy * Patient has has tried Lyrica, Gabapentin in the past * Ultram 25mg PO Q6H PRN 5) Pulmonary Nodule * CT Chest w. Contrast (11/11/16): In absence of risk factors for lung CA, no imaging required. If pt smoker, follow up CT at 12 months recommended. * pt is non-smoker-->will need follow-up imaging; discussed with patient at bedside during rounds 6) Abnormal Mural Thickening * CT Chest w. Contrast (11/11/16): Small hiatal hernia/distal esophageal wall thickening-->recommended to follow-up GI as outpatient 7) Hypertension * Monitor vital signs * Continue home meds: Lopressor 100mg PO qdaily * Increase HCTZ to 25mg PO Daily * Start Lisinopril 10mg PO qdaily 8) Asthma * Patient is not in acute exacerbation * Utilizes inhaler 2x per week during day. 1x per month at night. * Home med: Albuterol HFA 2puff PRN * monitor 9) Prophylaxis * SCDs b/l * Heparin 5000 SC Q8 hours PRN DVT ppx * Pepcid 20mg PO BID for GI ppx * Heart healthy diet
[2016-11-11 08:24] LABS: BASO % 0.4 % (0.0-2.0); EOS % 0.3 % (0.0-4.0); LYMPH # 1.6 K/uL (1.0-4.3); LYMPH % 16.5 % (20.0-40.0); MEAN CELL VOLUME 83.8 fL (81.0-99.0); MEAN CORPUSCULAR HEMOGLOBIN 27.6 pg (27.0-31.0); MEAN CORPUSCULAR HGB CONC 32.9 g/dL (33.0-37.0); MEAN PLATELET VOLUME 10.5 fL (7.2-11.7); MONO # 0.6 K/uL (0.0-0.8); MONO % 5.7 % (0.0-10.0); NEUT # 7.7 K/uL (1.8-7.0); NEUT % 77.1 % (50.0-75.0); NRBC % 0.1 % (0.0-2.0); RBC 5.44 Mil/uL (3.80-5.20); RED CELL DISTRIBUTION WIDTH 14.2 % (11.5-14.5); WHITE BLOOD COUNT 9.9 K/uL (4.8-10.8)
[2016-11-11 08:33] LABS: ALBUMIN 3.9 g/dL (3.5-5.0)
[2016-11-11 08:35] LABS: GFR AFRICAN-AMERICAN > 60; GFR NON-AFRICAN AMERICAN > 60
[2016-11-11 08:36] LABS: ALB/GLOB RATIO 1.1 (1.0-2.1); ALT/SGPT 24 U/L (9-52); AST/SGOT 19 U/L (14-36); BLOOD UREA NITROGEN 12 mg/dL (7-17)
[2016-11-11 08:37] LABS: CALCIUM 9.4 mg/dl (8.6-10.4); MAGNESIUM 1.9 mg/dL (1.6-2.3)
--- NOTE | 2016-11-11 16:50 | CT ---
PROCEDURE: CT HEAD WITHOUT CONTRAST. HISTORY: persistent headache COMPARISON: Head CT 06/14/2015. TECHNIQUE: Axial computed tomography images were obtained through the head/brain without intravenous contrast. Radiation dose: Total exam DLP = 853 mGy-cm. This CT exam was performed using one or more of the following dose reduction techniques: Automated exposure control, adjustment of the mA and/or kV according to patient size, and/or use of iterative reconstruction technique. FINDINGS: HEMORRHAGE: No intracranial hemorrhage. BRAIN: No mass effect or edema. No atrophy or chronic microvascular ischemic changes. VENTRICLES: Unremarkable. No hydrocephalus. CALVARIUM: Unremarkable. PARANASAL SINUSES: Unremarkable as visualized. No significant inflammatory changes. MASTOID AIR CELLS: Unremarkable as visualized. No inflammatory changes. OTHER FINDINGS: None. IMPRESSION: Normal CT of the Head. No signal change receded 06/06/2015.
[2016-11-11] MEDS: Tramadol 25 mg PO PRN (18:38)
[2016-11-12 08:36] LABS: BASO % 0.3 % (0.0-2.0); EOS # 0.1 K/uL (0.0-0.7); EOS % 0.6 % (0.0-4.0); HEMOGLOBIN 15.4 g/dL (11.0-16.0); LYMPH # 2.6 K/uL (1.0-4.3); LYMPH % 27.2 % (20.0-40.0); MEAN CELL VOLUME 83.3 fL (81.0-99.0); MEAN CORPUSCULAR HEMOGLOBIN 27.3 pg (27.0-31.0); MEAN CORPUSCULAR HGB CONC 32.8 g/dL (33.0-37.0); MEAN PLATELET VOLUME 10.6 fL (7.2-11.7); MONO # 0.6 K/uL (0.0-0.8); MONO % 6.1 % (0.0-10.0); NEUT # 6.4 K/uL (1.8-7.0); NEUT % 65.8 % (50.0-75.0); NRBC % 0.1 % (0.0-2.0); RBC 5.63 Mil/uL (3.80-5.20); RED CELL DISTRIBUTION WIDTH 13.9 % (11.5-14.5); WHITE BLOOD COUNT 9.7 K/uL (4.8-10.8)
[2016-11-12 08:41] LABS: ALBUMIN 3.9 g/dL (3.5-5.0)
[2016-11-12 08:44] LABS: ALB/GLOB RATIO 1.1 (1.0-2.1); AST/SGOT 18 U/L (14-36); BLOOD UREA NITROGEN 12 mg/dL (7-17); GFR AFRICAN-AMERICAN > 60; GFR NON-AFRICAN AMERICAN > 60
[2016-11-12 08:45] LABS: ALT/SGPT 22 U/L (9-52); CALCIUM 9.7 mg/dl (8.6-10.4); MAGNESIUM 1.7 mg/dL (1.6-2.3)
[2016-11-12] MEDS ORDERED: Apap-Butalbital-Caffeine 325-50-40mg Tab PO PRN (10:22)
--- NOTE | 2016-11-12 13:12 | CP.PCM.CON ---
History of Present Illness - History of Present Illness History of Present Illness: CONSULT DICTATED NON SPECIFIC HEADACHE PROBABLY RELATED TO MEDICATION NO LATERLIZING SIGNS NO FURTHER WORK UP IS NEEDED Past Patient History - Tetanus Immunizations Tetanus Immunization: Unknown - Past Medical History & Family History Past Medical History?: Yes - Past Social History Smoking Status: Former Smoker - CARDIAC Hx Hypertension: Yes Hx Peripheral Edema: Yes (DUE TO FIBROMYALGIA) - PULMONARY Hx Asthma: Yes - NEUROLOGICAL Hx Neurological Disorder: No - HEENT Hx HEENT Problems: No - RENAL Hx Chronic Kidney Disease: No - ENDOCRINE/METABOLIC Hx Endocrine Disorders: No - HEMATOLOGICAL/ONCOLOGICAL Hx Anemia: Yes - INTEGUMENTARY Hx Dermatological Problems: Yes Hx Eczema: Yes (ARMS) - MUSCULOSKELETAL/RHEUMATOLOGICAL Hx Fractures: Yes (RIGHT ARM) - GASTROINTESTINAL Hx Gastrointestinal Disorders: No - GENITOURINARY/GYNECOLOGICAL Hx Genitourinary Disorders: Yes Other/Comment: FIBROID UTERUS, Fibromyalgia - PSYCHIATRIC Hx Substance Use: No - SURGICAL HISTORY Hx Hysterectomy: Yes - ANESTHESIA Hx Anesthesia: Yes Hx Anesthesia Reactions: Yes (VOMITTING/NAUSEA) Hx Malignant Hyperthermia: No Meds Allergies/Adverse Reactions: Allergies Allergy/AdvReac Type Severity Reaction Status Date / Time No Known Allergies Allergy Verified 11/10/16 00:57 - Medications Medications: Current Medications Acetaminophen/Butalbital/Caffeine (Fioricet) 1 tab PO Q4 PRN PRN Reason: Headache Albuterol (Ventolin Hfa 90 Mcg/Actuation (8 G)) 2 puff IH RQ4 PRN PRN Reason: Wheezing Aspirin (Aspirin Chewable) 81 mg PO DAILY [facility] Last Admin: 11/12/16 09:33 Dose: 81 mg Famotidine (Pepcid) 20 mg PO BID [facility] Last Admin: 11/12/16 09:33 Dose: 20 mg Fluticasone Propionate (Flonase) 2 spr SHIRLEY DAILY [facility] Gabapentin (Neurontin) 100 mg PO TID [facility] Last Admin: 11/12/16 09:33 Dose: 100 mg Heparin Sodium (Porcine) (Heparin) 5,000 units SC Q8 [facility] Last Admin: 11/11/16 22:11 Dose: 5,000 units Hydralazine HCl (Apresoline) 10 mg IVP Q6H PRN PRN Reason: Systolic Blood Pressure Last Admin: 11/10/16 12:00 Dose: 10 mg Hydrochlorothiazide (Hydrodiuril) 25 mg PO DAILY [facility] Last Admin: 11/12/16 09:33 Dose: 25 mg Lisinopril (Zestril) 10 mg PO DAILY [facility] Last Admin: 11/12/16 09:33 Dose: 10 mg Metoprolol Tartrate (Lopressor) 100 mg PO DAILY [facility] Last Admin: 11/12/16 09:33 Dose: 100 mg Ondansetron HCl (Zofran Inj) 4 mg IVP Q6H PRN PRN Reason: Nausea/Vomiting Tramadol HCl (Ultram) 25 mg PO Q6H PRN PRN Reason: Pain, moderate (4-7) Last Admin: 11/11/16 18:38 Dose: 25 mg Results - Vital Signs Recent Vital Signs: Last Vital Signs Temp 97.9 F 11/12/16 08:00 Pulse 58 L 11/12/16 08:00 Resp 18 11/12/16 08:00 BP 154/90 H 11/12/16 08:00 Pulse Ox 96 11/12/16 08:00 - Labs Result Diagrams: 11/12/16 08:27 11/12/16 08:26 Labs: Laboratory Results - last 24 hr 11/12/16 11/12/16 08:26 08:27 WBC 9.7 RBC 5.63 H Hgb 15.4 Hct 46.9 MCV 83.3 MCH 27.3 MCHC 32.8 L RDW 13.9 Plt Count 193 MPV 10.6 Neut % (Auto) 65.8 Lymph % (Auto) 27.2 [place] % (Auto) 6.1 Eos % (Auto) 0.6 Baso % (Auto) 0.3 Neut # 6.4 Lymph # 2.6 [place] # 0.6 Eos # 0.1 Baso # 0.0 Sodium 136 Potassium 3.8 Chloride 97 L Carbon Dioxide 26 Anion Gap 17 BUN 12 Creatinine 0.6 L Est GFR ( Amer) > 60 Est GFR (Non-Af Amer) > 60 Random Glucose 83 Calcium 9.7 Phosphorus 2.9 Magnesium 1.7 Total Bilirubin 0.7 AST 18 ALT 22 Alkaline Phosphatase 54 Total Protein 7.3 Albumin 3.9 Globulin 3.4 Albumin/Globulin Ratio 1.1 TSH 3rd Generation 4.60
[2016-11-12] MEDS ORDERED: Apap-Butalbital-Caffeine 325-50-40mg Tab PO STA (14:16)
--- NOTE | 2016-11-12 14:19 | CP.PCM.PN ---
<Latricia Stovall - Last Filed: 11/12/16 14:14> Subjective - Date & Time of Evaluation Date of Evaluation: 11/12/16 Time of Evaluation: 08:50 - Subjective Subjective: PGY3 Medicine Note - Dr. Jc's service: Patient seen and examined at bedside this AM. Patient reports bilateral headache without radiation. Headache has not resolved with Tylenol. Patient denies photophobia or blurry vision or focal weakness. Patient also reports maxillary sinus pressure and mucous in the back of her throat associated with rhinorrea. Patient also reports RLQ pain and right flank pain especially with movement. Patient also reports urinary frequency. Patient denies fever, chills , chest pain, SOB, dysuria, hematuria, diarrhea. Objective - Vital Signs/Intake and Output Vital Signs (last 24 hours): Temp Pulse Resp BP Pulse Ox 97.9 F 58 L 18 154/90 H 96 11/12/16 08:00 11/12/16 08:00 11/12/16 08:00 11/12/16 08:00 11/12/16 08:00 Intake and Output: 11/12/16 11/12/16 06:59 18:59 Intake Total 240 Balance 240 - Medications Medications: Current Medications Acetaminophen/Butalbital/Caffeine (Fioricet) 1 tab PO Q4 PRN PRN Reason: Headache Albuterol (Ventolin Hfa 90 Mcg/Actuation (8 G)) 2 puff IH RQ4 PRN PRN Reason: Wheezing Aspirin (Aspirin Chewable) 81 mg PO DAILY [facility] Last Admin: 11/12/16 09:33 Dose: 81 mg Famotidine (Pepcid) 20 mg PO BID [facility] Last Admin: 11/12/16 09:33 Dose: 20 mg Fluticasone Propionate (Flonase) 2 spr SHIRLEY DAILY [facility] Gabapentin (Neurontin) 100 mg PO TID [facility] Last Admin: 11/12/16 09:33 Dose: 100 mg Heparin Sodium (Porcine) (Heparin) 5,000 units SC Q8 [facility] Last Admin: 11/11/16 22:11 Dose: 5,000 units Hydralazine HCl (Apresoline) 10 mg IVP Q6H PRN PRN Reason: Systolic Blood Pressure Last Admin: 11/10/16 12:00 Dose: 10 mg Hydrochlorothiazide (Hydrodiuril) 25 mg PO DAILY [facility] Last Admin: 11/12/16 09:33 Dose: 25 mg Lisinopril (Zestril) 10 mg PO DAILY [facility] Last Admin: 11/12/16 09:33 Dose: 10 mg Metoprolol Tartrate (Lopressor) 100 mg PO DAILY [facility] Last Admin: 11/12/16 09:33 Dose: 100 mg Ondansetron HCl (Zofran Inj) 4 mg IVP Q6H PRN PRN Reason: Nausea/Vomiting Tramadol HCl (Ultram) 25 mg PO Q6H PRN PRN Reason: Pain, moderate (4-7) Last Admin: 11/11/16 18:38 Dose: 25 mg - Labs Labs: 11/12/16 08:27 11/12/16 08:26 APTT 34 SECONDS (21-34) 11/10/16 07:07 - Constitutional Appears: Non-toxic, No Acute Distress - Head Exam Head Exam: NORMAL INSPECTION - Eye Exam Eye Exam: EOMI, PERRL - ENT Exam ENT Exam: Mucous Membranes Moist - Respiratory Exam Respiratory Exam: Clear to Ausculation Bilateral, NORMAL BREATHING PATTERN. absent: Rales, Rhonchi, Wheezes - Cardiovascular Exam Cardiovascular Exam: REGULAR RHYTHM, +S1, +S2. absent: Gallop, Rubs, Murmur - GI/Abdominal Exam GI & Abdominal Exam: Guarding, Soft, Tenderness (RLQ), Normal Bowel Sounds. absent: Distended, Firm - Extremities Exam Extremities Exam: absent: Pedal Edema - Neurological Exam Neurological Exam: Alert, Awake, Oriented x3 - Psychiatric Exam Psychiatric exam: Normal Affect, Normal Mood - Skin Skin Exam: Normal Color, Warm Assessment and Plan - Assessment and Plan (Free Text) Assessment: Chest Pain Admit to telemetry * Radiating to back CT Chest w. Contrast (11/11/16): Thoracic and abdominal aorta appear within normal limits of caliber w/o aneurysmal dilatatoin or dissection. 3 mm right middle lobe pulmonary nodule. In absence of risk factors for lung CA, no imaging required. If pt smoker, follow up CT at 12 months recommended. Small hiatal hernia/distal esophageal wall thickening. Hepatic steatosis. 16mm rounded soft tissue density adjacent to pancreatic tail similar to CT performed 01/06/12, this finding favored to reflect a splenule rather than pancreatic mass. Subcutaneous air and soft tissue stranding noted within right lower quadrant subcutaneous soft tissues, correlate for recent injections. Scoliosis. (see full report) * CXR (11/10/16) - no acute findings * ED Course: Nitro glycerin x4 and 324 aspirin given in the field by ALS. * EKG - NSR, poor R-wave progression V1 to V4. Meets minimal voltage criteria for LVH. * Troponin negative x 3, Ddimer <200 * BNP: 74.3 * A1c: 5.6 * TSH, free T4: WNL * D-dimer: negative * Lipids: WNL * ASA 81mg PO * Tylenol 650mg PO Q6H, PRN pain * Cardiology consult, Ameen: * no evidence of GA; some vascular risk factors * f/u Echo report RLQ Pain * Appendicitis v. Kidney stone v. ovarian cyst v. muscular pain * F/U Abd/Pelvis CT with PO and IV contrast Headaches * Persistent headache for 3 days * Head CT - negative (please see full report) * Fioricet added * Neurology Consult - Dr. Waller - help appreciated * No further work up needed per Dr. Waller Body Aches * Hx of fibromyalgia, peripheral neuropathy * has tried Lyrica, Gabapentin in the past * Ultram 25mg PO Q6H PRN; this is helping per patient Pulmonary Nodule * CT Chest w. Contrast (11/11/16): In absence of risk factors for lung CA, no imaging required. If pt smoker, follow up CT at 12 months recommended. * Patient reports smoking in her 20s and being exposed to second hand smoke daily Mural Thickening * CT Chest w. Contrast (11/11/16): Small hiatal hernia/distal esophageal wall thickening. * Patient should follow GI as outpatient Hypertension * Better controlled * BP 186/114 on admission; BP 220/120 * Continue home meds: Lopressor 100mg PO qd * Increase HCTZ to 25mg PO Daily * Start Lisinopril 10mg PO qd * monitor Asthma * Utilizes inhaler 2x per week during day. 1x per month at night. * Home med: Albuterol HFA 2puff PRN * monitor Prophylaxis * SCDs * Heparin 5k SC Q8 * Pepcid 20mg PO BID * Heart healthy diet Discussed with Dr. Babita Stovall, DO, PGY3 <Mireille Jc V - Last Filed: 11/12/16 15:45> Objective - Vital Signs/Intake and Output Vital Signs (last 24 hours): Temp Pulse Resp BP Pulse Ox 97.9 F 58 L 18 154/90 H 96 11/12/16 08:00 11/12/16 08:00 11/12/16 08:00 11/12/16 08:00 11/12/16 08:00 Intake and Output: 11/12/16 11/12/16 06:59 18:59 Intake Total 240 Balance 240 - Medications Medications: Current Medications Acetaminophen/Butalbital/Caffeine (Fioricet) 1 tab PO Q4 PRN PRN Reason: Headache Albuterol (Ventolin Hfa 90 Mcg/Actuation (8 G)) 2 puff IH RQ4 PRN PRN Reason: Wheezing Aspirin (Aspirin Chewable) 81 mg PO DAILY [facility] Last Admin: 11/12/16 09:33 Dose: 81 mg Famotidine (Pepcid) 20 mg PO BID [facility] Last Admin: 11/12/16 09:33 Dose: 20 mg Fluticasone Propionate (Flonase) 2 spr SHIRLEY DAILY [facility] Last Admin: 11/12/16 14:36 Dose: 1 applic Gabapentin (Neurontin) 100 mg PO TID [facility] Last Admin: 11/12/16 14:40 Dose: 100 mg Heparin Sodium (Porcine) (Heparin) 5,000 units SC Q8 [facility] Last Admin: 11/12/16 14:39 Dose: 5,000 units Hydralazine HCl (Apresoline) 10 mg IVP Q6H PRN PRN Reason: Systolic Blood Pressure Last Admin: 11/10/16 12:00 Dose: 10 mg Hydrochlorothiazide (Hydrodiuril) 25 mg PO DAILY [facility] Last Admin: 11/12/16 09:33 Dose: 25 mg Lisinopril (Zestril) 10 mg PO DAILY [facility] Last Admin: 11/12/16 09:33 Dose: 10 mg Metoprolol Tartrate (Lopressor) 100 mg PO DAILY [facility] Last Admin: 11/12/16 09:33 Dose: 100 mg Ondansetron HCl (Zofran Inj) 4 mg IVP Q6H PRN PRN Reason: Nausea/Vomiting Tramadol HCl (Ultram) 25 mg PO Q6H PRN PRN Reason: Pain, moderate (4-7) Last Admin: 11/11/16 18:38 Dose: 25 mg - Labs Labs: 11/12/16 08:27 11/12/16 08:26 APTT 34 SECONDS (21-34) 11/10/16 07:07 Attending/Attestation - Attestation I have personally seen and examined this patient.: Yes I have fully participated in the care of the patient.: Yes I have reviewed all pertinent clinical information, including history, physical exam and plan: Yes Notes (Text): patient seen, examined, and case discussed with day-time resident. Patient denies chest pain, denies palpitations, denies shortness of breathe, denies cough. Patient is a former smoker, in her 20's and has exposure to second hand smoke. Patient strongly advised to follow-up imaging to follow-up pulmonary nodule. Patient denies nausea today. patient reports headache in spite of Tylenol and Fiorcet. CT Head is negative. Patient report post-nasal drip and tenderness over the sinuses. Patient started on Flonase to relieve post -nasal drip. Patient report right lower quadrant pain, and reassess today and reports persistently bothers her. Patient ordered for CT abdomen/Plevis PO and IV contrast to r/o abnormality over the right lower quadrant. patient is pending echocardiogram; pending official report. Assessment/Plan 1) Right lower quadrant pain * Ordered for CT Abdomen/Pelvis PO and IV contrast-->f/u report 2) Chest Pain * Cardiology (Dr. Villanueva) help appreciated CT Chest w. Contrast (11/11/16): Thoracic and abdominal aorta appear within normal limits of caliber w/o aneurysmal dilatatoin or dissection. 3 mm right middle lobe pulmonary nodule. In absence of risk factors for lung CA, no imaging required. If pt smoker, follow up CT at 12 months recommended. Small hiatal hernia/distal esophageal wall thickening. Hepatic steatosis. 16mm rounded soft tissue density adjacent to pancreatic tail similar to CT performed 01/06/12, this finding favored to reflect a splenule rather than pancreatic mass. Subcutaneous air and soft tissue stranding noted within right lower quadrant subcutaneous soft tissues, correlate for recent injections. Scoliosis. (see full report) * CXR (11/10/16) - no acute findings * ED Course: Nitro glycerin x4 and 324 aspirin given in the field by ALS. * EKG - NSR, poor R-wave progression V1 to V4. Meets minimal voltage criteria for LVH. * Troponin negative x 3, Ddimer <200 * BNP: 74.3; a1c: 5.6; TSH, free T4: WNL; d-dimer: negative * ADDISON: X3 negative * Lipid panel: T, Cholesterol: 165, LDL: 94, HDL: 51 * Aspirin 81mg PO daily * Pending echocardiogram 3) Impaired glucose tolerance * A1c: 5.6 * Will need monitoring; 1 year follow-up a1c to avoid overt diabetes 4) Persistent Headache * Persistent headache for 3 days; refractory to Tylenol; denies photophobia, phonophobia * Neurology (Dr. Waller) content development specialist--->no further workup needed * CT head w/o contras: normal CT head 5) Hx of fibromyalgia, peripheral neuropathy * Patient has has tried Lyrica, Gabapentin in the past * Ultram 25mg PO Q6H PRN 6) Pulmonary Nodule * CT Chest w. Contrast (11/11/16): In absence of risk factors for lung CA, no imaging required. If pt smoker, follow up CT at 12 months recommended. * pt is non-smoker-->will need follow-up imaging; discussed with patient at bedside during rounds 7) Abnormal Mural Thickening * CT Chest w. Contrast (11/11/16): Small hiatal hernia/distal esophageal wall thickening-->recommended to follow-up GI as outpatient 8) Hypertension * Monitor vital signs * Continue home meds: Lopressor 100mg PO qdaily * Increase HCTZ to 25mg PO Daily * Start Lisinopril 10mg PO qdaily 9) Asthma * Patient is not in acute exacerbation * Utilizes inhaler 2x per week during day. 1x per month at night. * Home med: Albuterol HFA 2puff PRN * monitor 10) Prophylaxis * SCDs b/l * Heparin 5000 SC Q8 hours PRN DVT ppx * Pepcid 20mg PO BID for GI ppx * Heart healthy diet
[2016-11-12] MEDS: Fluticasone Nasal 50 mcg/Spray NAS SCH (14:36)
[2016-11-12 17:03] LABS: URINE BILIRUBIN NEGATIVE (NEGATIVE); URINE BLOOD 1+ (NEGATIVE); URINE CLARITY Clear (Clear); URINE COLOR Straw (YELLOW); URINE GLUCOSE (UA) NORMAL (Normal); URINE LEUKOCYTE ESTERASE NEG Leu/uL (Negative); URINE NITRATE NEGATIVE (NEGATIVE); URINE PROTEIN NEGATIVE (NEGATIVE); URINE UROBILINOGEN NORMAL mg/dL (0.2-1.0)
[2016-11-12] MEDS: Tramadol 25 mg PO PRN (22:21)
--- NOTE | 2016-11-13 03:44 | CON ---
DATE: 11/12/2016 ATTENDING PHYSICIAN: Donald Powell MD REASON FOR CONSULTATION: Headache. CHIEF COMPLIANT: The patient was admitted on 11/10/2016 with the history of chest pain. The patient has been admitted for the last 2 days. She claims that she has headache. From neurologic point of view, I was called in to evaluate her for further management. HISTORY OF PRESENT ILLNESS: Ms. Bailee Mcafrland is a 55-year-old right-handed female being admitted for her chest discomfortness being presenting with the 2 days history of headache. Headache is not localized, mostly diffused in the head. Some movement did gives her headache. The headache rate scale is 6/10, not associated with nausea or vomiting. No double vision. No neck pain. No focal weakness. Similar headache happened a few weeks ago that resolved by itself. Known history of migraine. No history of head trauma. PAST MEDICAL HISTORY: Hypertension. ALLERGIES: NO KNOWN ALLERGIES. REVIEW OF SYSTEMS: As per H and P, again reviewed. MEDICATIONS: Hydralazine, aspirin, Fioricet, Flonase, heparin, hydrochlorothiazide, Lopressor, gabapentin. PHYSICAL EXAMINATION VITAL SIGNS: Blood pressure 154/90, mean arterial pressure 111, respiratory rate 16, and temperature is afebrile. NECK: Supple. No carotid bruits. HEART: Sounds are regular, with systolic murmur. EXTREMITIES: No edema in legs. NEUROLOGICAL EXAMINATION: MENTAL STATUS EXAM: She is awake, alert, oriented to person, place, and time. Speech is clear. Naming, repetition, fluency, comprehension all within normal. CRANIAL NERVE EXAMINATION: Visual field intact. Pupils reactive to light. Extraocular movements normal. No nystagmus. No facial or sensory deficit. No facial asymmetry. Hearing is normal. Tongue is midline. Good gag. HEAD: Examination of the skull, no tenderness. Temporal artery is normal. TMJ is normal. No sinus tenderness. MOTOR EXAMINATION: On outstretched hand with eyes closed. No drift. Power is symmetric on either side. Deep tendon reflexes in biceps, brachialis, triceps 1+, both knees are 1+, both ankles are absent. Plantars are downgoing. SENSORY EXAMINATION: Grossly intact. No cortical sensory loss. COORDINATION: Normal. CONCLUSION: Upon reviewing her history and neurological examination, Ms. Bailee Mcfarland has been presenting with headache, which is probably secondary to her antihypertensive medication. The current examination does not show any lateralizing pain. The history as well as the presentation does not make me to think any further localizing her headache. WORKUP: CT of the head reviewed by me, no acute pathology is noted. LABORATORY DATA: Blood workup: WBC 9.7, hemoglobin 14.4, hematocrit 46.9, platelets 193. Sodium 136, potassium 3.8, chloride 97, bicarbonate 26, BUN 12, creatinine 0.6, GFR more than 60. TSH 4.60, cholesterol 165, LDL 94, HDL 51. RECOMMENDATIONS: 1. No further workup is needed from neurological point of view. The patient can be treated symptomatically . 2. Narcotic is not necessary for her headache. NSAID is strong enough to treat her headache. If there is any offending agent including blood pressure medication such as hydralazine can be switched to other group of medication. The patient's condition is being discussed with her and the plan of management. Reed Waller MD MTDD
[2016-11-13] MEDS: Tramadol 25 mg PO PRN ×2 (04:13→18:03)
[2016-11-13 06:57] LABS: BASO % 0.4 % (0.0-2.0); EOS % 0.6 % (0.0-4.0); LYMPH # 2.2 K/uL (1.0-4.3); LYMPH % 27.8 % (20.0-40.0); MEAN CELL VOLUME 83.3 fL (81.0-99.0); MEAN CORPUSCULAR HEMOGLOBIN 28.5 pg (27.0-31.0); MEAN CORPUSCULAR HGB CONC 34.2 g/dL (33.0-37.0); MEAN PLATELET VOLUME 10.1 fL (7.2-11.7); MONO # 0.5 K/uL (0.0-0.8); MONO % 6.7 % (0.0-10.0); NEUT # 5.1 K/uL (1.8-7.0); NEUT % 64.5 % (50.0-75.0); RBC 5.27 Mil/uL (3.80-5.20); RED CELL DISTRIBUTION WIDTH 13.8 % (11.5-14.5); WHITE BLOOD COUNT 7.9 K/uL (4.8-10.8)
[2016-11-13 07:17] LABS: ALBUMIN 3.5 g/dL (3.5-5.0)
[2016-11-13 07:20] LABS: GFR AFRICAN-AMERICAN > 60; GFR NON-AFRICAN AMERICAN > 60
[2016-11-13 07:21] LABS: ALT/SGPT 18 U/L (9-52); AST/SGOT 18 U/L (14-36); BLOOD UREA NITROGEN 13 mg/dL (7-17); CALCIUM 9.4 mg/dl (8.6-10.4); MAGNESIUM 1.7 mg/dL (1.6-2.3)
[2016-11-13] MEDS ORDERED: Iohexol 240 (50 ml) PO ONE (10:00)
[2016-11-13] MEDS: Fluticasone Nasal 50 mcg/Spray NAS SCH (10:13)
--- NOTE | 2016-11-13 10:16 | CP.PCM.PN ---
Addendum entered and electronically signed by Latricia Stovall DO 11/13/16 12: 40: Abd/Pelvis CT with PO and IV contrast 11/13/16 - Acute appendicitis without evidence of abscess or perforation. 2mm non-obstructing stone in the right lower pole and 2mm non-obstructing stone in the left upper pole. No hydronephrosis or obstructive uropathy. Constipation. No evidecne of bowel obstruction. Patient made NPO Zosyn 3.375mg IVPB Q6H started 11/13/16 Flagyl 500mg IVPB Q8H started 11/13/16 Surgery consult - Dr. Fernandez - f/u recs Original Note: <Latricia Stovall - Last Filed: 11/13/16 10:14> Subjective - Date & Time of Evaluation Date of Evaluation: 11/13/16 Time of Evaluation: 08:50 - Subjective Subjective: PGY3 Medicine Note - Dr. Jc's service: Patient seen and examined at bedside this AM. Patient reports bilateral headache has improved but is still not completely gone. She says it returns when she lays flat. Patient reports bilateral flank pain, low back pain and abdominal pain. Patient denies fever, chills, chest pain, SOB, dysuria, hematuria, diarrhea, nausea, vomiting, constipation. Objective - Vital Signs/Intake and Output Vital Signs (last 24 hours): Temp Pulse Resp BP Pulse Ox 97.8 F 57 L 20 143/82 97 11/13/16 07:45 11/13/16 08:40 11/13/16 07:45 11/13/16 07:45 11/13/16 07:45 Intake and Output: 11/13/16 11/13/16 06:59 18:59 Intake Total 240 Balance 240 - Medications Medications: Current Medications Acetaminophen/Butalbital/Caffeine (Fioricet) 1 tab PO Q4 PRN PRN Reason: Headache Albuterol (Ventolin Hfa 90 Mcg/Actuation (8 G)) 2 puff IH RQ4 PRN PRN Reason: Wheezing Amlodipine Besylate (Norvasc) 5 mg PO DAILY [facility] Last Admin: 11/12/16 16:38 Dose: 5 mg Aspirin (Aspirin Chewable) 81 mg PO DAILY [facility] Last Admin: 11/12/16 09:33 Dose: 81 mg Famotidine (Pepcid) 20 mg PO BID [facility] Last Admin: 11/12/16 17:47 Dose: 20 mg Fluticasone Propionate (Flonase) 2 spr SHIRLEY DAILY [facility] Last Admin: 11/12/16 14:36 Dose: 1 applic Gabapentin (Neurontin) 100 mg PO TID [facility] Last Admin: 11/12/16 17:46 Dose: 100 mg Heparin Sodium (Porcine) (Heparin) 5,000 units SC Q8 [facility] Last Admin: 11/13/16 05:00 Dose: 5,000 units Hydralazine HCl (Apresoline) 10 mg IVP Q6H PRN PRN Reason: Systolic Blood Pressure Last Admin: 11/10/16 12:00 Dose: 10 mg Hydrochlorothiazide (Hydrodiuril) 25 mg PO DAILY [facility] Last Admin: 11/12/16 09:33 Dose: 25 mg Lisinopril (Zestril) 10 mg PO DAILY [facility] Last Admin: 11/12/16 09:33 Dose: 10 mg Metoprolol Tartrate (Lopressor) 100 mg PO DAILY [facility] Last Admin: 11/12/16 09:33 Dose: 100 mg Ondansetron HCl (Zofran Inj) 4 mg IVP Q6H PRN PRN Reason: Nausea/Vomiting Tramadol HCl (Ultram) 25 mg PO Q6H PRN PRN Reason: Pain, moderate (4-7) Last Admin: 11/13/16 04:13 Dose: 25 mg - Labs Labs: 11/13/16 06:50 11/13/16 06:50 APTT 34 SECONDS (21-34) 11/10/16 07:07 - Constitutional Appears: Non-toxic, No Acute Distress - Head Exam Head Exam: NORMAL INSPECTION - Eye Exam Eye Exam: EOMI - ENT Exam ENT Exam: Mucous Membranes Moist - Respiratory Exam Respiratory Exam: Clear to Ausculation Bilateral, NORMAL BREATHING PATTERN. absent: Rales, Rhonchi, Wheezes - Cardiovascular Exam Cardiovascular Exam: REGULAR RHYTHM, +S1, +S2. absent: Gallop, Rubs, Murmur - GI/Abdominal Exam GI & Abdominal Exam: Soft, Tenderness (diffuse), Normal Bowel Sounds. absent: Distended, Guarding - Extremities Exam Extremities Exam: Normal Capillary Refill. absent: Pedal Edema - Back Exam Back Exam: absent: CVA tenderness (L), CVA tenderness (R) - Neurological Exam Neurological Exam: Alert, Awake, Oriented x3 - Psychiatric Exam Psychiatric exam: Normal Affect, Normal Mood - Skin Skin Exam: Normal Color, Warm Assessment and Plan - Assessment and Plan (Free Text) Assessment: Chest Pain Admit to telemetry * Radiating to back CT Chest w. Contrast (11/11/16): Thoracic and abdominal aorta appear within normal limits of caliber w/o aneurysmal dilatatoin or dissection. 3 mm right middle lobe pulmonary nodule. In absence of risk factors for lung CA, no imaging required. If pt smoker, follow up CT at 12 months recommended. Small hiatal hernia/distal esophageal wall thickening. Hepatic steatosis. 16mm rounded soft tissue density adjacent to pancreatic tail similar to CT performed 01/06/12, this finding favored to reflect a splenule rather than pancreatic mass. Subcutaneous air and soft tissue stranding noted within right lower quadrant subcutaneous soft tissues, correlate for recent injections. Scoliosis. (see full report) * CXR (11/10/16) - no acute findings * ED Course: Nitro glycerin x4 and 324 aspirin given in the field by ALS. * EKG - NSR, poor R-wave progression V1 to V4. Meets minimal voltage criteria for LVH. * Troponin negative x 3, Ddimer <200 * BNP: 74.3 * A1c: 5.6 * TSH, free T4: WNL * D-dimer: negative * Lipids: WNL * ASA 81mg PO * Tylenol 650mg PO Q6H, PRN pain * Cardiology consult, Ameen: * no evidence of AL; some vascular risk factors * f/u Echo report RLQ Pain * Appendicitis v. Kidney stone v. ovarian cyst v. muscular pain * F/U Abd/Pelvis CT with PO and IV contrast Headaches * Persistent headache for 3 days * Head CT - negative (please see full report) * Fioricet added - helping * Neurology Consult - Dr. Waller - help appreciated * No further work up needed per Dr. Waller Body Aches * Hx of fibromyalgia, peripheral neuropathy * has tried Lyrica, Gabapentin in the past * Ultram 25mg PO Q6H PRN; this is helping per patient Pulmonary Nodule * CT Chest w. Contrast (11/11/16): In absence of risk factors for lung CA, no imaging required. If pt smoker, follow up CT at 12 months recommended. * Patient reports smoking in her 20s and being exposed to second hand smoke daily; therefore patient should get repeat CT in 12 months Mural Thickening * CT Chest w. Contrast (11/11/16): Small hiatal hernia/distal esophageal wall thickening. * Patient should follow GI as outpatient Hypertension * Better controlled * BP 186/114 on admission; BP 220/120 * Continue home meds: Lopressor 100mg PO qd * Increase HCTZ to 25mg PO Daily * Start Lisinopril 10mg PO qd * monitor Asthma * Utilizes inhaler 2x per week during day. 1x per month at night. * Home med: Albuterol HFA 2puff PRN * monitor Prophylaxis * SCDs * Heparin 5k SC Q8 * Pepcid 20mg PO BID * Heart healthy diet Discussed with Dr. Babita Stovall, , PGY3 <Mireille Jc V - Last Filed: 11/13/16 14:38> Objective - Vital Signs/Intake and Output Vital Signs (last 24 hours): Temp Pulse Resp BP Pulse Ox 97.8 F 57 L 20 143/82 97 11/13/16 07:45 11/13/16 08:40 11/13/16 07:45 11/13/16 07:45 11/13/16 07:45 Intake and Output: 11/13/16 11/13/16 06:59 18:59 Intake Total 240 Balance 240 - Medications Medications: Current Medications Acetaminophen/Butalbital/Caffeine (Fioricet) 1 tab PO Q4 PRN PRN Reason: Headache Albuterol (Ventolin Hfa 90 Mcg/Actuation (8 G)) 2 puff IH RQ4 PRN PRN Reason: Wheezing Amlodipine Besylate (Norvasc) 5 mg PO DAILY [facility] Last Admin: 11/13/16 10:14 Dose: 5 mg Aspirin (Aspirin Chewable) 81 mg PO DAILY [facility] Last Admin: 11/13/16 10:14 Dose: 81 mg Famotidine (Pepcid) 20 mg PO BID [facility] Last Admin: 11/13/16 10:14 Dose: 20 mg Fluticasone Propionate (Flonase) 2 spr SHIRLEY DAILY [facility] Last Admin: 11/13/16 10:13 Dose: 1 applic Gabapentin (Neurontin) 100 mg PO TID [facility] Last Admin: 11/13/16 10:14 Dose: 100 mg Heparin Sodium (Porcine) (Heparin) 5,000 units SC Q8 [facility] Last Admin: 11/13/16 05:00 Dose: 5,000 units Hydralazine HCl (Apresoline) 10 mg IVP Q6H PRN PRN Reason: Systolic Blood Pressure Last Admin: 11/10/16 12:00 Dose: 10 mg Hydrochlorothiazide (Hydrodiuril) 25 mg PO DAILY [facility] Last Admin: 11/13/16 10:14 Dose: 25 mg Metronidazole (Flagyl) 500 mg in 100 mls @ 100 mls/hr IVPB Q8 [facility] Piperacillin Sod/Tazobactam Sod (Zosyn 3.375 Gm Iv Premix) 3.375 gm in 50 mls @ 200 mls/hr IVPB Q6H [facility] Sodium Chloride (Sodium Chloride 0.45%) 1,000 mls @ 75 mls/hr IV .[id number] [facility] Lisinopril (Zestril) 10 mg PO DAILY [facility] Last Admin: 11/13/16 10:14 Dose: 10 mg Metoprolol Tartrate (Lopressor) 100 mg PO DAILY [facility] Last Admin: 11/13/16 10:14 Dose: 100 mg Ondansetron HCl (Zofran Inj) 4 mg IVP Q6H PRN PRN Reason: Nausea/Vomiting Tramadol HCl (Ultram) 25 mg PO Q6H PRN PRN Reason: Pain, moderate (4-7) Last Admin: 11/13/16 04:13 Dose: 25 mg - Labs Labs: 11/13/16 06:50 11/13/16 06:50 APTT 34 SECONDS (21-34) 11/10/16 07:07 Attending/Attestation - Attestation I have personally seen and examined this patient.: Yes I have fully participated in the care of the patient.: Yes I have reviewed all pertinent clinical information, including history, physical exam and plan: Yes Notes (Text): Patient seen, examined and case discussed with day-time resident. Patient seen this morning with family member at bedside. patient permits me to speak in front of family member regarding medical information. Patient tolerating breakfast this morning. Patient denies nausea, denies vomitting. Patient reporting right lower quadrant at bedside but patient appears comfortable. Patient complete CT of Abdomen/Pelvis later this morning-->findings indicate acute appendicitis-->patient made NPO, and general surgery consult. Patient started on Zosyn 3.375 IV Q 6houtd and Flagyl 500mg IV Q 8 hours. Patient does not have fever and does not have white count. Patient ordered for chest xray, coagulation studies, and heparin dvt ppx held given CT scan finding. F/u with general surgery. Assessment/Plan 1) Right lower quadrant pain * CT Scan (11/13/16): acute appendicitis. No evidence of perforation or abscess. 2 mm nonobstructing stone in the right lower pole and 2mm nonobstructing stone in the left upper pole. No hydronephrosis or obstructive uropathy. Constipation. No evidence of bowel obstruction. * Start Zosyn 3.375 IV Q 6hours and Flagyl 500mg IV Q 8 hours * Patient made NPO following CT scan result * Heparin held secondary for possible surgical intervention * Aspirin held secondary for possible surgical intervention * General surgery (Dr. Fernandez) on consult-->f/u recommendations * Chest xray (11/13/16)-->no active pulmonary disease * Pending coagulation studies * Start NS 100cc/hr 2) Chest Pain * Cardiology (Dr. Villanueva) help appreciated CT Chest w. Contrast (11/11/16): Thoracic and abdominal aorta appear within normal limits of caliber w/o aneurysmal dilatatoin or dissection. 3 mm right middle lobe pulmonary nodule. In absence of risk factors for lung CA, no imaging required. If pt smoker, follow up CT at 12 months recommended. Small hiatal hernia/distal esophageal wall thickening. Hepatic steatosis. 16mm rounded soft tissue density adjacent to pancreatic tail similar to CT performed 01/06/12, this finding favored to reflect a splenule rather than pancreatic mass. Subcutaneous air and soft tissue stranding noted within right lower quadrant subcutaneous soft tissues, correlate for recent injections. Scoliosis. (see full report) * CXR (11/10/16) - no acute findings * ED Course: Nitro glycerin x4 and 324 aspirin given in the field by ALS. * EKG - NSR, poor R-wave progression V1 to V4. Meets minimal voltage criteria for LVH. 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 Contrast (11/11/16): In absence of risk factors for lung CA, no imaging required. If pt smoker, follow up CT at 12 months recommended. * pt is former smoker (in her 20s)-->will need follow-up imaging 7) Abnormal Mural Thickening * CT Chest w. Contrast (11/11/16): Small hiatal hernia/distal esophageal wall thickening-->recommended to follow-up GI as outpatient 8) Hypertension * Monitor vital signs * Continue home meds: Lopressor 100mg PO qdaily * Increase HCTZ to 25mg PO Daily * Start Lisinopril 10mg PO qdaily 9) Asthma * Patient is not in acute exacerbation * Utilizes inhaler 2x per week during day. 1x per month at night. * Home med: Albuterol HFA 2puff PRN * monitor 10) Prophylaxis * SCDs b/l * Heparin 5000 SC Q8 hours PRN DVT ppx * Pepcid 20mg PO BID for GI ppx * Heart healthy diet * CXR (11/10/16) - no acute findings
[2016-11-13] MEDS ORDERED: Iodixanol 320 MG/ML 100 ML BOTTLE IV ONE (11:36)
--- NOTE | 2016-11-13 12:33 | CT ---
PROCEDURE: CT Abdomen and Pelvis with contrast HISTORY: RLQ and right flank pain COMPARISON: 01/06/2012. TECHNIQUE: CT scan of the abdomen and pelvis was performed after intravenous administration of contrast. Oral contrast was administered. Coronal and sagittal reformatted images were obtained. Contrast dose: 100 mL Visipaque 240 Radiation dose: Total exam DLP = 584.52 mGy-cm. This CT exam was performed using one or more of the following dose reduction techniques: Automated exposure control, adjustment of the mA and/or kV according to patient size, and/or use of iterative reconstruction technique. FINDINGS: LOWER THORAX: The lung bases are clear. LIVER: The liver is normal in size and there is fatty infiltration. No gross lesion or ductal dilatation. GALLBLADDER AND BILE DUCTS: There are no calcified gallstones. PANCREAS: The pancreas is normal in size and there is homogeneous enhancement without focal mass or ductal dilatation. SPLEEN: The spleen is normal in size without focal lesion. ADRENALS: Both adrenal glands are normal in size without discrete nodule. KIDNEYS AND URETERS: Both kidneys are normal in size and there is homogeneous enhancement. There is a 2 mm nonobstructing stone in the right lower pole and a 2 mm nonobstructing stone in the left upper pole. There is a 12 mm simple cyst in the right lower pole. VASCULATURE: No aortic aneurysm. BOWEL: The small bowel loops are normal in caliber. There is large amount of stool in the colon and fecal stasis in the rectum. APPENDIX: The appendix is distended, fluid-filled and measures 1.8 cm in diameter, there is mild wall thickening and surrounding inflammatory changes. No evidence of perforation or abscess. PERITONEUM: No free fluid. No free air. LYMPH NODES: No enlarged lymph nodes. BLADDER: Normal in appearance. REPRODUCTIVE: Surgically absent. BONES: No acute fracture. Degenerative disc disease at L5-S1. OTHER FINDINGS: None. IMPRESSION: 1. Acute appendicitis. No evidence of perforation or abscess. 2. 2 mm nonobstructing stone in the right lower pole and 2 mm nonobstructing stone in the left upper pole. No hydronephrosis or obstructive uropathy. 3. Constipation. No evidence of bowel obstruction.
--- NOTE | 2016-11-13 13:56 | RAD ---
HISTORY: pre-op clearance COMPARISON: 11/10/2016. FINDINGS: LUNGS: The lungs are clear. PLEURA: No significant pleural effusion identified, no pneumothorax apparent. CARDIOVASCULAR: The heart is normal in size. . Atherosclerotic aortic arch calcifications are present. OSSEOUS STRUCTURES: There is mild levoscoliosis in the upper thoracic spine. VISUALIZED UPPER ABDOMEN: Normal. OTHER FINDINGS: None. IMPRESSION: No active pulmonary disease.
[2016-11-13] MEDS: Sodium Chloride 0.45% 1,000 ML IV SCH (14:23)
[2016-11-13] MEDS: Piperacill/Tazo 3.375gm in Dex 3.375 GM/50 ML BAG IVPB SCH ×2 (14:24→17:56)
[2016-11-13] MEDS ORDERED: Sodium Chloride 0.9% 1,000 ML IV SCH (14:45)
[2016-11-13] MEDS: metroNIDAZOLE IV 500 mg/100 ml 500 MG/100 ML BAG IVPB SCH ×2 (15:02→21:41)
[2016-11-13 17:36] LABS: INR 1.1; PROTHROMBIN TIME 11.9 SECONDS (9.7-12.2)
--- NOTE | 2016-11-13 21:03 | CP.PCM.CON ---
<Osmel Kennedy - Last Filed: 11/14/16 05:00> History of Present Illness - History of Present Illness History of Present Illness: 55F w/ PMHx of Anemia, Asthma, Fibromyalgia, HTN, presented to ED on 10/11 with complaints of chest pain. General Surgery was consulted for Abd CT scan finding of acute appendicitis. Patient reports having some right lower quadrant tenderness. Patient denies fever, chills, chest pain, SOB, dysuria, hematuria, diarrhea, nausea, vomiting, constipation at time of examination. Appendix found to measure ~1.[address] scan. Will schedule patient of OR in AM. PMHx: Anemia, Asthma, Fibromyalgia, HTN, PSHx: Partial Hysterectomy 2013 Allergies: NKDA SocHx: Denies tobacco or illicit drug use. Review of Systems - Review of Systems Review of Systems: 12 pt ROS carried out, unremarkable, except as stated in HPI Past Patient History - Tetanus Immunizations Tetanus Immunization: Unknown - Past Medical History & Family History Past Medical History?: Yes - Past Social History Smoking Status: Former Smoker - CARDIAC Hx Hypertension: Yes Hx Peripheral Edema: Yes (DUE TO FIBROMYALGIA) - PULMONARY Hx Asthma: Yes - NEUROLOGICAL Hx Neurological Disorder: No - HEENT Hx HEENT Problems: No - RENAL Hx Chronic Kidney Disease: No - ENDOCRINE/METABOLIC Hx Endocrine Disorders: No - HEMATOLOGICAL/ONCOLOGICAL Hx Anemia: Yes - INTEGUMENTARY Hx Dermatological Problems: Yes Hx Eczema: Yes (ARMS) - MUSCULOSKELETAL/RHEUMATOLOGICAL Hx Fractures: Yes (RIGHT ARM) - GASTROINTESTINAL Hx Gastrointestinal Disorders: No - GENITOURINARY/GYNECOLOGICAL Hx Genitourinary Disorders: Yes Other/Comment: FIBROID UTERUS, Fibromyalgia - PSYCHIATRIC Hx Substance Use: No - SURGICAL HISTORY Hx Hysterectomy: Yes - ANESTHESIA Hx Anesthesia: Yes Hx Anesthesia Reactions: Yes (VOMITTING/NAUSEA) Hx Malignant Hyperthermia: No Meds Allergies/Adverse Reactions: Allergies Allergy/AdvReac Type Severity Reaction Status Date / Time No Known Allergies Allergy Verified 11/10/16 00:57 - Medications Medications: Current Medications Acetaminophen/Butalbital/Caffeine (Fioricet) 1 tab PO Q4 PRN PRN Reason: Headache Albuterol (Ventolin Hfa 90 Mcg/Actuation (8 G)) 2 puff IH RQ4 PRN PRN Reason: Wheezing Amlodipine Besylate (Norvasc) 5 mg PO DAILY [facility] Last Admin: 11/13/16 10:14 Dose: 5 mg Aspirin (Aspirin Chewable) 81 mg PO DAILY [facility] Last Admin: 11/13/16 10:14 Dose: 81 mg Famotidine (Pepcid) 20 mg PO BID [facility] Last Admin: 11/13/16 17:56 Dose: 20 mg Fluticasone Propionate (Flonase) 2 spr SHIRLEY DAILY [facility] Last Admin: 11/13/16 10:13 Dose: 1 applic Gabapentin (Neurontin) 100 mg PO TID [facility] Last Admin: 11/13/16 17:56 Dose: 100 mg Hydralazine HCl (Apresoline) 10 mg IVP Q6H PRN PRN Reason: Systolic Blood Pressure Last Admin: 11/10/16 12:00 Dose: 10 mg Hydrochlorothiazide (Hydrodiuril) 25 mg PO DAILY [facility] Last Admin: 11/13/16 10:14 Dose: 25 mg Metronidazole (Flagyl) 500 mg in 100 mls @ 100 mls/hr IVPB Q8 [facility] Last Admin: 11/13/16 15:02 Dose: 100 mls/hr Piperacillin Sod/Tazobactam Sod (Zosyn 3.375 Gm Iv Premix) 3.375 gm in 50 mls @ 200 mls/hr IVPB Q6H [facility] Last Admin: 11/13/16 17:56 Dose: 200 mls/hr Sodium Chloride (Sodium Chloride 0.45%) 1,000 mls @ 75 mls/hr IV .[id number] [facility] Last Admin: 11/13/16 14:23 Dose: 75 mls/hr Lisinopril (Zestril) 10 mg PO DAILY [facility] Last Admin: 11/13/16 10:14 Dose: 10 mg Metoprolol Tartrate (Lopressor) 100 mg PO DAILY [facility] Last Admin: 11/13/16 10:14 Dose: 100 mg Ondansetron HCl (Zofran Inj) 4 mg IVP Q6H PRN PRN Reason: Nausea/Vomiting Tramadol HCl (Ultram) 25 mg PO Q6H PRN PRN Reason: Pain, moderate (4-7) Last Admin: 11/13/16 18:03 Dose: 25 mg Physical Exam - Constitutional Appears: No Acute Distress - Head Exam Head Exam: NORMOCEPHALIC - Eye Exam Eye Exam: Normal appearance - ENT Exam ENT Exam: Mucous Membranes Moist - Respiratory Exam Respiratory Exam: NORMAL BREATHING PATTERN - Cardiovascular Exam Cardiovascular Exam: +S1, +S2 - GI/Abdominal Exam GI & Abdominal Exam: Soft, Tenderness Additional comments: RLQ tenderness of palpation - Neurological Exam Neurological exam: Alert, Oriented x3 - Psychiatric Exam Psychiatric exam: Normal Mood - Skin Skin Exam: Dry, Intact, Warm Results - Vital Signs Recent Vital Signs: Last Vital Signs Temp 97.6 F 11/13/16 16:09 Pulse 52 L 11/13/16 18:00 Resp 20 11/13/16 16:09 BP 136/88 11/13/16 16:09 Pulse Ox 96 11/13/16 16:09 - Labs Result Diagrams: 11/13/16 06:50 11/13/16 06:50 Labs: Laboratory Results - last 24 hr 11/13/16 11/13/16 11/13/16 06:50 06:50 17:23 WBC 7.9 RBC 5.27 H Hgb 15.0 Hct 43.9 MCV 83.3 MCH 28.5 MCHC 34.2 RDW 13.8 Plt Count 189 MPV 10.1 Neut % (Auto) 64.5 Lymph % (Auto) 27.8 Crosby % (Auto) 6.7 Eos % (Auto) 0.6 Baso % (Auto) 0.4 Neut # 5.1 Lymph # 2.2 Crosby # 0.5 Eos # 0.0 Baso # 0.0 PT 11.9 INR 1.1 APTT 33 Sodium 136 Potassium 3.8 Chloride 95 L Carbon Dioxide 29 Anion Gap 16 BUN 13 Creatinine 0.7 Est GFR ( Amer) > 60 Est GFR (Non-Af Amer) > 60 Random Glucose 91 Calcium 9.4 Phosphorus 3.4 Magnesium 1.7 Total Bilirubin 0.7 AST 18 ALT 18 Alkaline Phosphatase 46 Total Protein 7.0 Albumin 3.5 Globulin 3.5 Albumin/Globulin Ratio 1.0 TSH 3rd Generation 2.93 Assessment & Plan - Assessment and Plan (Free Text) Assessment: 55F w/ appendicitis -NPO -IVF -ABx -Analgesic/Anti-emetics -Cardiac clearance -Hold anti-coagulation -Scheduled for OR in AM for laparoscopic appendectomy possible open -D/w Dr. Fernandez <Puma Fernandez - Last Filed: 11/15/16 20:10> Results - Vital Signs Recent Vital Signs: Last Vital Signs Temp 97.5 F L 11/15/16 15:38 Pulse 60 11/15/16 15:38 Resp 20 11/15/16 15:38 BP 119/76 11/15/16 15:38 Pulse Ox 96 11/15/16 15:38 - Labs Result Diagrams: 11/15/16 08:11 11/15/16 08:11 Labs: Laboratory Results - last 24 hr 11/15/16 11/15/16 08:11 08:11 WBC 15.2 H D RBC 4.99 Hgb 14.0 Hct 41.3 MCV 82.7 MCH 28.0 MCHC 33.9 RDW 14.4 Plt Count 202 MPV 10.2 Neut % (Auto) 84.1 H Lymph % (Auto) 9.0 L Crosby % (Auto) 6.6 Eos % (Auto) 0.1 Baso % (Auto) 0.2 Neut # 12.8 H Lymph # 1.4 Crosby # 1.0 H Eos # 0.0 Baso # 0.0 Neutrophils % (Manual) 90 H Lymphocytes % (Manual) 7 L Monocytes % (Manual) 3 Platelet Estimate Normal RBC Morphology Normal Sodium 132 Potassium 3.3 L Chloride 94 L Carbon Dioxide 26 Anion Gap 15 BUN 10 Creatinine 0.7 Est GFR ( Amer) > 60 Est GFR (Non-Af Amer) > 60 Random Glucose 90 Calcium 9.0 Phosphorus 3.0 Magnesium 1.7 Total Bilirubin 0.8 AST 29 ALT 26 Alkaline Phosphatase 44 Total Protein 6.6 Albumin 3.5 Globulin 3.1 Albumin/Globulin Ratio 1.1 Attending/Attestation - Attestation I have personally seen and examined this patient.: Yes I have fully participated in the care of the patient.: Yes I have reviewed all pertinent clinical information: Yes Notes (Text): 11/15/16 20:10 Pt was seen and examined at bedside on 11/14/16 Agree with above note and assessment Pt with Acute Appendicitis CT scan and Labs reviewed OR for Lap Appendectomy possible Open Consent NPO, IVF IV antibiotics Plan d.w pt in detail. Risk and benefit explained in detail.
[2016-11-14] MEDS: Piperacill/Tazo 3.375gm in Dex 3.375 GM/50 ML BAG IVPB SCH ×3 (00:45→12:50)
[2016-11-14] MEDS: metroNIDAZOLE IV 500 mg/100 ml 500 MG/100 ML BAG IVPB SCH ×2 (05:57→14:50)
[2016-11-14] MEDS: Tramadol 25 mg PO PRN (07:23)
[2016-11-14 07:53] LABS: BASO % 0.3 % (0.0-2.0); EOS # 0.1 K/uL (0.0-0.7); EOS % 0.7 % (0.0-4.0); HEMOGLOBIN 14.9 g/dL (11.0-16.0); LYMPH # 1.9 K/uL (1.0-4.3); LYMPH % 24.4 % (20.0-40.0); MEAN CORPUSCULAR HEMOGLOBIN 28.1 pg (27.0-31.0); MEAN CORPUSCULAR HGB CONC 33.9 g/dL (33.0-37.0); MEAN PLATELET VOLUME 10.3 fL (7.2-11.7); MONO # 0.6 K/uL (0.0-0.8); MONO % 7.3 % (0.0-10.0); NEUT # 5.2 K/uL (1.8-7.0); NEUT % 67.3 % (50.0-75.0); NRBC % 0.1 % (0.0-2.0); RBC 5.28 Mil/uL (3.80-5.20); RED CELL DISTRIBUTION WIDTH 13.9 % (11.5-14.5); WHITE BLOOD COUNT 7.7 K/uL (4.8-10.8)
[2016-11-14] MEDS: Lidocaine 1% Inj (20ml) ONE ×2 (08:10→09:35)
[2016-11-14] MEDS: Bupivacaine-Epi 0.25%-1:200,000 PF Inj ONE ×2 (08:10→09:35)
[2016-11-14 08:14] LABS: ALBUMIN 3.6 g/dL (3.5-5.0)
[2016-11-14 08:16] LABS: GFR AFRICAN-AMERICAN > 60; GFR NON-AFRICAN AMERICAN > 60
[2016-11-14 08:17] LABS: ALB/GLOB RATIO 1.1 (1.0-2.1); ALT/SGPT 29 U/L (9-52); AST/SGOT 27 U/L (14-36); BLOOD UREA NITROGEN 11 mg/dL (7-17); CALCIUM 9.2 mg/dl (8.6-10.4)
[2016-11-14 08:18] LABS: MAGNESIUM 1.7 mg/dL (1.6-2.3)
[2016-11-14] MEDS ORDERED: Propofol 10 mg/ml Inj (20 ML) ONE (09:00)
[2016-11-14] MEDS ORDERED: Midazolam 2 MG/2 ML VIAL ONE (09:02)
[2016-11-14] MEDS ORDERED: Rocuronium 10 mg/ml (5 ml) ONE (10:13)
[2016-11-14] MEDS ORDERED: Neostigmine Methylsulfate 3mg/3ml Syringe IV ONE (10:13)
[2016-11-14] MEDS ORDERED: Albuterol 0.083% Inhal Sol (2.5 mg/3 mL) UD INH PRN (10:35)
[2016-11-14] MEDS ORDERED: Labetalol 25mg/5ml Syringe IVP PRN (10:35)
[2016-11-14] MEDS ORDERED: HYDROmorphone 0.5 mg/0.5 ml ISec IVP PRN (10:48)
--- NOTE | 2016-11-14 11:03 | PCM.SURG1 ---
Surgeon's Initial Post Op Note - Surgeon's Notes Surgeon: Dr. Renee Fernandez [employer] Car Builder: Cheryl Clemens, PGY2; Naif Crowell, OMS3 Pre-Operative Diagnosis: Acute appendicitis Operative Findings: See full operative report Post-Operative Diagnosis: same Operation Performed: Laparoscopic cholecystectomy Specimen/Specimens Removed: appendix Estimated Blood Loss: EBL {In ML}: 5 Date of Surgery/Procedure: 11/14/16 Time of Surgery/Procedure: 09:35
[2016-11-14] MEDS ORDERED: Morphine 4 MG/ML VIAL IVP PRN (11:06)
[2016-11-14] MEDS: HYDROmorphone 0.5 mg/0.5 ml ISec IVP PRN ×2 (11:25→11:45)
[2016-11-14] MEDS: Fluticasone Nasal 50 mcg/Spray NAS SCH (12:58)
[2016-11-14] MEDS ORDERED: Potassium Chloride 20 mEq/15 ml LIQ UD PO ONE (13:02)
[2016-11-14] MEDS ORDERED: Oxycodone/Acetaminophen 5/325 mg Tab PO PRN (15:09)
--- NOTE | 2016-11-14 15:16 | CP.PCM.PN ---
<Raman Esqueda - Last Filed: 11/14/16 15:48> Subjective - Date & Time of Evaluation Date of Evaluation: 11/14/16 Time of Evaluation: 09:15 - Subjective Subjective: PGY-[address] Jc Patient seen and examined at bedside. Patient is complaining of diffuse abdominal pain but particularly localized to the right side. Patient underwent laparascopic appendectomy this morning. Patient's pain is controlled after being brought back to the floor. Admits passing flatus but no bowel movement yet. Patient denies CP, SOB, difficulty with urination. Objective - Vital Signs/Intake and Output Vital Signs (last 24 hours): Temp Pulse Resp BP Pulse Ox 97.4 F L 87 20 184/107 H 93 L 11/14/16 12:35 11/14/16 12:35 11/14/16 12:35 11/14/16 12:35 11/14/16 12:35 Intake and Output: 11/14/16 11/14/16 06:59 18:59 Intake Total 800 1100 Output Total 100 Balance 800 1000 - Medications Medications: Current Medications Acetaminophen/Butalbital/Caffeine (Fioricet) 1 tab PO Q4 PRN PRN Reason: Headache Albuterol (Ventolin Hfa 90 Mcg/Actuation (8 G)) 2 puff IH RQ4 PRN PRN Reason: Wheezing Albuterol Sulfate (Albuterol 0.083% Inhal Rosita (2.5 Mg/3 Ml) Ud) 2.5 mg INH ONCE PRN PRN Reason: Wheezing Amlodipine Besylate (Norvasc) 5 mg PO DAILY [facility] Last Admin: 11/14/16 12:52 Dose: 5 mg Aspirin (Aspirin Chewable) 81 mg PO DAILY [facility] Last Admin: 11/13/16 10:14 Dose: 81 mg Famotidine (Pepcid) 20 mg PO BID [facility] Last Admin: 11/14/16 12:53 Dose: 20 mg Fluticasone Propionate (Flonase) 2 spr SHIRLEY DAILY [facility] Last Admin: 11/14/16 12:58 Dose: 1 applic Gabapentin (Neurontin) 100 mg PO TID [facility] Last Admin: 11/14/16 14:14 Dose: 100 mg Hydralazine HCl (Apresoline) 10 mg IVP Q6H PRN PRN Reason: Systolic Blood Pressure Last Admin: 11/10/16 12:00 Dose: 10 mg Hydrochlorothiazide (Hydrodiuril) 25 mg PO DAILY [facility] Last Admin: 11/14/16 12:52 Dose: 25 mg Metronidazole (Flagyl) 500 mg in 100 mls @ 100 mls/hr IVPB Q8 [facility] Last Admin: 11/14/16 14:50 Dose: 100 mls/hr Piperacillin Sod/Tazobactam Sod (Zosyn 3.375 Gm Iv Premix) 3.375 gm in 50 mls @ 200 mls/hr IVPB Q6H [facility] Last Admin: 11/14/16 12:50 Dose: 200 mls/hr Sodium Chloride (Sodium Chloride 0.45%) 1,000 mls @ 75 mls/hr IV .[id number] [facility] Last Admin: 11/13/16 14:23 Dose: 75 mls/hr Lisinopril (Zestril) 10 mg PO DAILY [facility] Last Admin: 11/14/16 12:53 Dose: 10 mg Metoprolol Tartrate (Lopressor) 100 mg PO DAILY [facility] Last Admin: 11/14/16 12:51 Dose: 100 mg Ondansetron HCl (Zofran Inj) 4 mg IVP Q6H PRN PRN Reason: Nausea/Vomiting Last Admin: 11/14/16 12:51 Dose: 4 mg Oxycodone/Acetaminophen (Percocet 5/325 Mg Tab) 1 tab PO Q4H PRN PRN Reason: Pain, severe (8-10) Stop: 11/17/16 15:10 Tramadol HCl (Ultram) 25 mg PO Q6H PRN PRN Reason: Pain, moderate (4-7) Last Admin: 11/14/16 07:23 Dose: 25 mg - Labs Labs: 11/14/16 07:45 11/14/16 07:45 PT 11.9 SECONDS (9.7-12.2) 11/13/16 17:23 INR 1.1 11/13/16 17:23 APTT 33 SECONDS (21-34) 11/13/16 17:23 - Constitutional Appears: No Acute Distress - Head Exam Head Exam: ATRAUMATIC, NORMAL INSPECTION, NORMOCEPHALIC - Eye Exam Eye Exam: EOMI, PERRL - ENT Exam ENT Exam: Mucous Membranes Moist - Respiratory Exam Respiratory Exam: Clear to Ausculation Bilateral - Cardiovascular Exam Cardiovascular Exam: Bradycardia, REGULAR RHYTHM - GI/Abdominal Exam GI & Abdominal Exam: Soft, Tenderness (diffuse but particularly localized RLQ), Normal Bowel Sounds - Extremities Exam Extremities Exam: absent: Pedal Edema, Tenderness - Neurological Exam Neurological Exam: Alert, Awake, Oriented x3 - Skin Skin Exam: Dry, Intact, Normal Color, Warm Additional comments: Dressing c/d/i Assessment and Plan - Assessment and Plan (Free Text) Plan: Chest Pain Admit to telemetry * Radiating to back CT Chest w. Contrast (11/11/16): Thoracic and abdominal aorta appear within normal limits of caliber w/o aneurysmal dilatation or dissection. 3 mm right middle lobe pulmonary nodule. In absence of risk factors for lung CA, no imaging required. If pt smoker, follow up CT at 12 months recommended. Small hiatal hernia/distal esophageal wall thickening. Hepatic steatosis. 16mm rounded soft tissue density adjacent to pancreatic tail similar to CT performed 01/06/12, this finding favored to reflect a splenule rather than pancreatic mass. Subcutaneous air and soft tissue stranding noted within right lower quadrant subcutaneous soft tissues, correlate for recent injections. Scoliosis. (see full report) * CXR (11/10/16) - no acute findings * ED Course: Nitro glycerin x4 and 324 aspirin given in the field by ALS. * EKG - NSR, poor R-wave progression V1 to V4. Meets minimal voltage criteria for LVH. * Troponin negative x 3, Ddimer <200 * BNP: 74.3 * A1c: 5.6 * TSH, free T4: WNL * D-dimer: negative * Lipids: WNL * ASA 81mg PO * Tylenol 650mg PO Q6H, PRN pain * Cardiology consult, Ameen: * no evidence of IN; some vascular risk factors * f/u Echo report Acute Appendicitis * Acute Appendicitis s/p laparascopic appendectomy on 11/14. Pain is controlled and flatus passed. Can be discharged tomorrow AM. * Flagyl and Zosyn will discontinue today per surgical team since patient is post op * 11/14: On Percocet 5/325 mg PO Q4H prn pain * CT Abd/Pelvis: 1. Acute appendicitis. No evidence of perforation or abscess. 2. 2 mm nonobstructing stone in the right lower pole and 2 mm nonobstructing stone in the left upper pole. No hydronephrosis or obstructive uropathy. 3. Constipation. No evidence of bowel obstruction. Headaches * Persistent headache for 4 days * Head CT - negative (please see full report) * Fioricet added - helping * Neurology Consult - Dr. Waller - signed off * No further work up needed per Dr. Waller Body Aches * Hx of fibromyalgia, peripheral neuropathy * has tried Lyrica, Gabapentin in the past * Ultram 25mg PO Q6H PRN; this is helping per patient Pulmonary Nodule * CT Chest w. Contrast (11/11/16): In absence of risk factors for lung CA, no imaging required. If pt smoker, follow up CT at 12 months recommended. * Patient reports smoking in her 20s and being exposed to second hand smoke daily; therefore patient should get repeat CT in 12 months Mural Thickening * CT Chest w. Contrast (11/11/16): Small hiatal hernia/distal esophageal wall thickening. * Patient should follow GI as outpatient Hypertension * BP 186/114 on admission; BP 129/75 today * Continue home meds: Lopressor 100mg PO qd * Increase HCTZ to 25mg PO Daily * Lisinopril 10mg PO qd * Norvasc 5 mg PO daily * monitor Asthma * Utilizes inhaler 2x per week during day. 1x per month at night. * Home med: Albuterol HFA 2puff PRN * monitor Prophylaxis * SCDs * Heparin 5k SC Q8 * Pepcid 20mg PO BID * Heart Healthy Diet Case discussed with Dr. Babita Esqueda PGY1 <Mireille Jc V - Last Filed: 11/14/16 19:11> Objective - Vital Signs/Intake and Output Vital Signs (last 24 hours): Temp Pulse Resp BP Pulse Ox 98.2 F 67 16 129/75 96 11/14/16 16:00 11/14/16 16:00 11/14/16 16:00 11/14/16 16:00 11/14/16 16:00 Intake and Output: 11/14/16 11/15/16 18:59 06:59 Intake Total 1100 Output Total 100 Balance 1000 - Medications Medications: Current Medications Acetaminophen/Butalbital/Caffeine (Fioricet) 1 tab PO Q4 PRN PRN Reason: Headache Albuterol (Ventolin Hfa 90 Mcg/Actuation (8 G)) 2 puff IH RQ4 PRN PRN Reason: Wheezing Albuterol Sulfate (Albuterol 0.083% Inhal Rosita (2.5 Mg/3 Ml) Ud) 2.5 mg INH ONCE PRN PRN Reason: Wheezing Amlodipine Besylate (Norvasc) 5 mg PO DAILY [facility] Last Admin: 11/14/16 12:52 Dose: 5 mg Aspirin (Aspirin Chewable) 81 mg PO DAILY [facility] Last Admin: 11/13/16 10:14 Dose: 81 mg Famotidine (Pepcid) 20 mg PO BID [facility] Last Admin: 11/14/16 17:26 Dose: 20 mg Fluticasone Propionate (Flonase) 2 spr SHIRLEY DAILY [facility] Last Admin: 11/14/16 12:58 Dose: 1 applic Gabapentin (Neurontin) 100 mg PO TID [facility] Last Admin: 11/14/16 17:26 Dose: 100 mg Hydralazine HCl (Apresoline) 10 mg IVP Q6H PRN PRN Reason: Systolic Blood Pressure Last Admin: 11/10/16 12:00 Dose: 10 mg Hydrochlorothiazide (Hydrodiuril) 25 mg PO DAILY [facility] Last Admin: 11/14/16 12:52 Dose: 25 mg Sodium Chloride (Sodium Chloride 0.45%) 1,000 mls @ 75 mls/hr IV .[id number] [facility] Last Admin: 11/14/16 18:48 Dose: 75 mls/hr Piperacillin Sod/Tazobactam (Sod 3.375 gm/ Sodium Chloride) 100 mls @ 200 mls/ hr IVPB Q6H [facility] Stop: 11/14/16 22:59 Last Admin: 11/14/16 17:26 Dose: 200 mls/hr Lisinopril (Zestril) 10 mg PO DAILY [facility] Last Admin: 11/14/16 12:53 Dose: 10 mg Metoprolol Tartrate (Lopressor) 100 mg PO DAILY [facility] Last Admin: 11/14/16 12:51 Dose: 100 mg Ondansetron HCl (Zofran Inj) 4 mg IVP Q6H PRN PRN Reason: Nausea/Vomiting Last Admin: 11/14/16 12:51 Dose: 4 mg Oxycodone/Acetaminophen (Percocet 5/325 Mg Tab) 1 tab PO Q4H PRN PRN Reason: Pain, severe (8-10) Stop: 11/17/16 15:10 Tramadol HCl (Ultram) 25 mg PO Q6H PRN PRN Reason: Pain, moderate (4-7) Last Admin: 11/14/16 07:23 Dose: 25 mg - Labs Labs: 11/14/16 07:45 11/14/16 07:45 PT 11.9 SECONDS (9.7-12.2) 11/13/16 17:23 INR 1.1 11/13/16 17:23 APTT 33 SECONDS (21-34) 11/13/16 17:23 Attending/Attestation - Attestation I have personally seen and examined this patient.: Yes I have fully participated in the care of the patient.: Yes I have reviewed all pertinent clinical information, including history, physical exam and plan: Yes Notes (Text): Patient seen, examined and case discussed with day-time resident. Patient seen this afternoon following s/p lap appendectomy with family members at bedside. patient permits me to speak in front of family member regarding medical information. Patient tolerated procedure. Patient's blood pressure elevated secondary to pain. Reassessed later blood pressure normalized. When surgery reports patient is stable from their perspective from their perspective. Patient finish last antibiotic tonight per surgery. Assessment/Plan 1) Acute appendicitis * CT Scan (11/13/16): acute appendicitis. No evidence of perforation or abscess. 2 mm nonobstructing stone in the right lower pole and 2mm nonobstructing stone in the left upper pole. No hydronephrosis or obstructive uropathy. Constipation. No evidence of bowel obstruction. * c/w Zosyn 3.375 IV Q 6hours (active since 11/13/16) * General surgery (Dr. Fernandez) on consult-->help appreciated * Surgery decision making including preoperative/intraoperative/postoperative per general surgery * Patient taken to OR today for lap appendectomy--->f/u post-operative management * f/u anticoagulation per surgery * Chest xray (11/13/16)-->no active pulmonary disease * Start NS 100cc/hr 2) Chest Pain * Cardiology (Dr. Villanueva) help appreciated; patient cleared by cardiology prior to surgery CT Chest w. Contrast (11/11/16): Thoracic and abdominal aorta appear within normal limits of caliber w/o aneurysmal dilatatoin or dissection. 3 mm right middle lobe pulmonary nodule. In absence of risk factors for lung CA, no imaging required. If pt smoker, follow up CT at 12 months recommended. Small hiatal hernia/distal esophageal wall thickening. Hepatic steatosis. 16mm rounded soft tissue density adjacent to pancreatic tail similar to CT performed 01/06/12, this finding favored to reflect a splenule rather than pancreatic mass. Subcutaneous air and soft tissue stranding noted within right lower quadrant subcutaneous soft tissues, correlate for recent injections. Scoliosis. (see full report) * CXR (11/10/16) - no acute findings * ED Course: Nitro glycerin x4 and 324 aspirin given in the field by ALS. * EKG - NSR, poor R-wave progression V1 to V4. Meets minimal voltage criteria for LVH. * Troponin negative x 3, Ddimer <200 * BNP: 74.3; a1c: 5.6; TSH, free T4: WNL; d-dimer: negative * ADDISON: X3 negative * Lipid panel: T, Cholesterol: 165, LDL: 94, HDL: 51 * Aspirin 81mg PO daily held on 11/13/16 secondary to acute appendicitis requiring surgery 3) Impaired glucose tolerance * A1c: 5.6 * Will need monitoring; 1 year follow-up a1c to avoid overt diabetes 4) Persistent Headache * resolved * Neurology (Dr. Waller) security consultant--->no further workup needed; signed off * CT head w/o contrast: normal CT head 5) Hx of fibromyalgia, peripheral neuropathy * Patient has has tried Lyrica, Gabapentin in the past * Ultram 25mg PO Q6H PRN 6) Pulmonary Nodule * CT Chest w. Contrast (11/11/16): In absence of risk factors for lung CA, no imaging required. If pt smoker, follow up CT at 12 months recommended. * pt is former smoker (in her 20s)-->will need follow-up imaging 7) Abnormal Mural Thickening * CT Chest w. Contrast (11/11/16): Small hiatal hernia/distal esophageal wall thickening-->recommended to follow-up GI as outpatient 8) Hypertension * Monitor vital signs * Continue home meds: Lopressor 100mg PO qdaily * c/w HCTZ to 25mg PO Daily * c/w Lisinopril 10mg PO qdaily * contributing factor: post-operative pain 9) Asthma * Patient is not in acute exacerbation * Utilizes inhaler 2x per week during day. 1x per month at night. * Home med: Albuterol HFA 2puff PRN * monitor 10) Prophylaxis * SCDs b/l * held anticoagulation prior to surgery; f/u surgery when to restart anticoagulation * Pepcid 20mg PO BID for GI ppx * Heart healthy diet * CXR (11/10/16) - no acute findings
[2016-11-14] MEDS: Piperacillin/Tazobact 3.375 GM in Sodium Chloride 100 ML IVPB SCH ×2 (17:26→21:40)
[2016-11-14] MEDS: Sodium Chloride 0.45% 1,000 ML IV SCH (18:48)
[2016-11-14 23:41] VITALS: RESP 20
[2016-11-15] MEDS: Tramadol 25 mg PO PRN (03:27)
[2016-11-15 08:22] LABS: BASO % 0.2 % (0.0-2.0); EOS % 0.1 % (0.0-4.0); LYMPH # 1.4 K/uL (1.0-4.3); MEAN CELL VOLUME 82.7 fL (81.0-99.0); MEAN CORPUSCULAR HGB CONC 33.9 g/dL (33.0-37.0); MEAN PLATELET VOLUME 10.2 fL (7.2-11.7); MONO % 6.6 % (0.0-10.0); NEUT # 12.8 K/uL (1.8-7.0); NEUT % 84.1 % (50.0-75.0); PLATELET COUNT 202 K/uL (130-400); RBC 4.99 Mil/uL (3.80-5.20); RED CELL DISTRIBUTION WIDTH 14.4 % (11.5-14.5)
[2016-11-15 08:25] LABS: WHITE BLOOD COUNT 15.2 K/uL (4.8-10.8)
[2016-11-15 08:30] VITALS: O2SAT 96
[2016-11-15 08:50] LABS: LYMPHOCYTE 7 % (20-40); MONOCYTE 3 % (0-10); NEUTROPHIL 90 % (50-75); TOTAL CELLS COUNTED 100
[2016-11-15 08:53] LABS: PLATELET ESTIMATE NORMAL (NORMAL)
[2016-11-15 08:59] LABS: ALBUMIN 3.5 g/dL (3.5-5.0)
[2016-11-15 09:01] LABS: GFR AFRICAN-AMERICAN > 60; GFR NON-AFRICAN AMERICAN > 60
[2016-11-15 09:02] LABS: ALB/GLOB RATIO 1.1 (1.0-2.1); ALT/SGPT 26 U/L (9-52); AST/SGOT 29 U/L (14-36); BLOOD UREA NITROGEN 10 mg/dL (7-17)
[2016-11-15 09:03] LABS: MAGNESIUM 1.7 mg/dL (1.6-2.3)
[2016-11-15] MEDS: Fluticasone Nasal 50 mcg/Spray NAS SCH ×2 (09:42→09:49)
[2016-11-15] MEDS ORDERED: Magnesium Sulfate 1 gm in D5W 1 GM/100 ML BAG IVPB ONE (10:35)
[2016-11-15] MEDS ORDERED: Potassium Chloride 20 mEq ER Tab PO ONE (11:17)
--- NOTE | 2016-11-15 12:11 | CP.PCM.PN ---
Subjective - Date & Time of Evaluation Date of Evaluation: 11/15/16 Time of Evaluation: 08:00 - Subjective Subjective: General Surgery- Dr. Fernandez Pt S&E at bedside this am. No acute events overnight. complaining of some nausea no vomiting. Tolerating breakfast. Pain manageable. +OOB Denies Fevers, Chills, SOB/CP Objective - Vital Signs/Intake and Output Vital Signs (last 24 hours): Temp Pulse Resp BP Pulse Ox 97.7 F 62 20 121/74 96 11/15/16 09:25 11/15/16 09:00 11/15/16 08:00 11/15/16 08:00 11/15/16 08:00 Intake and Output: 11/15/16 11/15/16 06:59 18:59 Intake Total 600 Balance 600 - Medications Medications: Current Medications Albuterol (Ventolin Hfa 90 Mcg/Actuation (8 G)) 2 puff IH RQ4 PRN PRN Reason: Wheezing Albuterol Sulfate (Albuterol 0.083% Inhal Rosita (2.5 Mg/3 Ml) Ud) 2.5 mg INH ONCE PRN PRN Reason: Wheezing Amlodipine Besylate (Norvasc) 5 mg PO DAILY [facility] Last Admin: 11/15/16 09:43 Dose: 5 mg Aspirin (Aspirin Chewable) 81 mg PO DAILY [facility] Last Admin: 11/15/16 09:43 Dose: 81 mg Famotidine (Pepcid) 20 mg PO BID [facility] Last Admin: 11/15/16 09:42 Dose: 20 mg Fluticasone Propionate (Flonase) 2 spr SHIRLEY DAILY [facility] Last Admin: 11/15/16 09:49 Dose: Not Given Gabapentin (Neurontin) 100 mg PO TID [facility] Last Admin: 11/15/16 09:42 Dose: 100 mg Hydralazine HCl (Apresoline) 10 mg IVP Q6H PRN PRN Reason: Systolic Blood Pressure Last Admin: 11/10/16 12:00 Dose: 10 mg Hydrochlorothiazide (Hydrodiuril) 25 mg PO DAILY [facility] Last Admin: 11/15/16 09:43 Dose: 25 mg Sodium Chloride (Sodium Chloride 0.45%) 1,000 mls @ 75 mls/hr IV .[id number] [facility] Last Admin: 11/14/16 18:48 Dose: 75 mls/hr Lisinopril (Zestril) 10 mg PO DAILY [facility] Last Admin: 11/15/16 09:42 Dose: 10 mg Metoprolol Tartrate (Lopressor) 100 mg PO DAILY [facility] Last Admin: 11/15/16 09:42 Dose: 100 mg Ondansetron HCl (Zofran Inj) 4 mg IVP Q6H PRN PRN Reason: Nausea/Vomiting Last Admin: 11/14/16 21:57 Dose: 4 mg Oxycodone/Acetaminophen (Percocet 5/325 Mg Tab) 1 tab PO Q4H PRN PRN Reason: Pain, severe (8-10) Stop: 11/17/16 15:10 Last Admin: 11/14/16 21:57 Dose: 1 tab Tramadol HCl (Ultram) 25 mg PO Q6H PRN PRN Reason: Pain, moderate (4-7) Last Admin: 11/15/16 03:27 Dose: 25 mg - Labs Labs: 11/15/16 08:11 11/15/16 08:11 PT 11.9 SECONDS (9.7-12.2) 11/13/16 17:23 INR 1.1 11/13/16 17:23 APTT 33 SECONDS (21-34) 11/13/16 17:23 - Constitutional Appears: No Acute Distress - Eye Exam Eye Exam: EOMI - ENT Exam ENT Exam: Mucous Membranes Moist - Respiratory Exam Respiratory Exam: NORMAL BREATHING PATTERN. absent: Accessory Muscle Use - Cardiovascular Exam Cardiovascular Exam: +S1, +S2 - GI/Abdominal Exam GI & Abdominal Exam: Soft Additional comments: approrpately tender around incision - Neurological Exam Neurological Exam: Awake, Oriented x3 - Psychiatric Exam Psychiatric exam: Normal Affect, Normal Mood - Skin Skin Exam: Normal Color, Warm Assessment and Plan - Assessment and Plan (Free Text) Assessment: 55F s/p laparascopic appendectomy POD1 Plan: - Pt tolerating diet - pain well controlled - Patient cleared surgically for discharge D/W Dr. Jim Medina PGY1
[2016-11-15] MEDS ORDERED: Piperacillin/Tazobact 3.375 GM in Sodium Chloride 100 ML IVPB SCH (13:30)
--- NOTE | 2016-11-15 13:45 | CP.PCM.DIS ---
<Raman Esqueda - Last Filed: 11/15/16 21:46> Provider - Provider Date of Admission: 11/11/16 18:52 Attending physician: Mireille Jc DO Primary care physician: Amanda Cazares MD Time Spent in preparation of Discharge (in minutes): 31 Diagnosis - Discharge Diagnosis (1) Acute appendicitis Status: Acute (2) Chest pain Status: Acute (3) Impaired glucose tolerance Status: Chronic (4) Headache Status: Acute (5) History of fibromyalgia Status: Chronic (6) Pulmonary nodule Status: Acute (7) Asthma Status: Chronic Hospital Course - Lab Results Lab Results: Micro Results 11/12/16 15:26 Urine Urine Culture - Final No Growth (<1,000 CFU/ML) Most Recent Lab Values WBC 15.2 K/uL (4.8-10.8) H D 11/15/16 08:11 RBC 4.99 Mil/uL (3.80-5.20) 11/15/16 08:11 Hgb 14.0 g/dL (11.0-16.0) 11/15/16 08:11 Hct 41.3 % (34.0-47.0) 11/15/16 08:11 MCV 82.7 fL (81.0-99.0) 11/15/16 08:11 MCH 28.0 pg (27.0-31.0) 11/15/16 08:11 MCHC 33.9 g/dL (33.0-37.0) 11/15/16 08:11 RDW 14.4 % (11.5-14.5) 11/15/16 08:11 Plt Count 202 K/uL (130-400) 11/15/16 08:11 MPV 10.2 fL (7.2-11.7) 11/15/16 08:11 Neut % (Auto) 84.1 % (50.0-75.0) H 11/15/16 08:11 Lymph % (Auto) 9.0 % (20.0-40.0) L 11/15/16 08:11 Lyman % (Auto) 6.6 % (0.0-10.0) 11/15/16 08:11 Eos % (Auto) 0.1 % (0.0-4.0) 11/15/16 08:11 Baso % (Auto) 0.2 % (0.0-2.0) 11/15/16 08:11 Neut # 12.8 K/uL (1.8-7.0) H 11/15/16 08:11 Lymph # 1.4 K/uL (1.0-4.3) 11/15/16 08:11 Lyman # 1.0 K/uL (0.0-0.8) H 11/15/16 08:11 Eos # 0.0 K/uL (0.0-0.7) 11/15/16 08:11 Baso # 0.0 K/uL (0.0-0.2) 11/15/16 08:11 Neutrophils % (Manual) 90 % (50-75) H 11/15/16 08:11 Lymphocytes % (Manual) 7 % (20-40) L 11/15/16 08:11 Monocytes % (Manual) 3 % (0-10) 11/15/16 08:11 Platelet Estimate Normal (NORMAL) 11/15/16 08:11 RBC Morphology Normal 11/15/16 08:11 PT 11.9 SECONDS (9.7-12.2) 11/13/16 17:23 INR 1.1 11/13/16 17:23 APTT 33 SECONDS (21-34) 11/13/16 17:23 D-Dimer, Quantitative < 200 ng/mlDDU (0-243) 11/10/16 01:21 Sodium 132 mmol/L (132-148) 11/15/16 08:11 Potassium 3.3 mmol/L (3.6-5.2) L 11/15/16 08:11 Chloride 94 mmol/L (98-107) L 11/15/16 08:11 Carbon Dioxide 26 mmol/L (22-30) 11/15/16 08:11 Anion Gap 15 (10-20) 11/15/16 08:11 BUN 10 mg/dL (7-17) 11/15/16 08:11 Creatinine 0.7 MG/DL (0.7-1.2) 11/15/16 08:11 Est GFR ( Amer) > 60 11/15/16 08:11 Est GFR (Non-Af Amer) > 60 11/15/16 08:11 POC Glucose (mg/dL) 91 mg/dL (65-110) 11/10/16 11:50 Random Glucose 90 mg/dL (65-105) 11/15/16 08:11 Hemoglobin A1c 5.6 % (4.2-6.5) 11/11/16 08:10 Calcium 9.0 mg/dl (8.6-10.4) 11/15/16 08:11 Phosphorus 3.0 mg/dL (2.5-4.5) 11/15/16 08:11 Magnesium 1.7 mg/dL (1.6-2.3) 11/15/16 08:11 Total Bilirubin 0.8 mg/dL (0.2-1.3) 11/15/16 08:11 AST 29 U/L (14-36) 11/15/16 08:11 ALT 26 U/L (9-52) 11/15/16 08:11 Alkaline Phosphatase 44 U/L (38-126) 11/15/16 08:11 Total Creatine Kinase 50 U/L (30-135) 11/10/16 16:50 CK-MB (Mass) 0.67 ng/mL (0.0-3.38) 11/10/16 16:50 Troponin I < 0.0120 ng/mL (0.00-0.120) 11/10/16 01:21 Troponin I, Quant < 0.0120 ng/mL (0.00-0.120) 11/10/16 16:50 NT-Pro-B Natriuret Pep 74.3 pg/mL (0-900) 11/10/16 07:07 Total Protein 6.6 g/dL (6.3-8.3) 11/15/16 08:11 Albumin 3.5 g/dL (3.5-5.0) 11/15/16 08:11 Globulin 3.1 gm/dL (2.2-3.9) 11/15/16 08:11 Albumin/Globulin Ratio 1.1 (1.0-2.1) 11/15/16 08:11 Triglycerides 63 mg/dL (0-149) 11/10/16 07:07 Cholesterol 165 mg/dL (0-199) 11/10/16 07:07 LDL Cholesterol Direct 94 mg/dL (0-129) 11/10/16 07:07 HDL Cholesterol 51 mg/dL (30-70) 11/10/16 07:07 Free T4 1.13 ng/dL (0.78-2.19) 11/11/16 08:10 TSH 3rd Generation 4.26 mIU/L (0.46-4.68) 11/14/16 07:45 Urine Color Straw (YELLOW) 11/12/16 16:58 Urine Clarity Clear (Clear) 11/12/16 16:58 Urine pH 5.0 (5.0-8.0) 11/12/16 16:58 Ur Specific [place] 1.009 (1.003-1.030) 11/12/16 16:58 Urine Protein Negative mg/dL (NEGATIVE) 11/12/16 16:58 Urine Glucose (UA) Normal mg/dL (Normal) 11/12/16 16:58 Urine Ketones Negative mg/dL (NEGATIVE) 11/12/16 16:58 Urine Blood 1+ (NEGATIVE) H 11/12/16 16:58 Urine Nitrate Negative (NEGATIVE) 11/12/16 16:58 Urine Bilirubin Negative (NEGATIVE) 11/12/16 16:58 Urine Urobilinogen Normal mg/dL (0.2-1.0) 11/12/16 16:58 Ur Leukocyte Esterase Neg Jose Alberto/uL (Negative) 11/12/16 16:58 Urine WBC (Auto) 1 /hpf (0-5) 11/10/16 01:32 Urine RBC (Auto) < 1 /hpf (0-3) 11/12/16 16:58 Ur Squamous Epith Cells 3 /hpf (0-5) 11/10/16 01:32 - Hospital Course Hospital Course: Initial admission note: "Patient is a 55 year old female with PMHx Anemia, Asthma, Fibromyalgia, HTN, LE Peripheral Neuropathy (s/p hysterectomy) - who comes in to the emergency department complaining of chest pain that began around 1:00 am this morning. The patient reports that she was lying in bed and when she got up to use the bathroom the pain suddenly came on. Patient describes the pain as sharp, located primarily on the right side of her chest and rates it a 7/10. It is exacerbated by deep inspiration, and she denies any radiation of pain. While in transit to the hospital, patient reports she received Nitroglycerin x3 which she states made the pain better and currently describes her pain as more diffuse and rated 3/10. Patient also reports that she experienced shortness of breath associated with the chest pain. Patient also complains of a rash on the extensor surface of the right wrist. Patient admits to headaches for the past 3 days, which she attributes to her uncontrolled BP for the past 3 days (measured at home). Patient also c/o rash on wrist, mild gas pain in all quadrants, mild low back pain. Patient denies fevers, chills, cough, nausea, vomiting, constipation or diarrhea, any additional complaints." Hospital course: Patient admitted for chest pain. Chest pain workup included troponin x3, EKG (NSR, poor R-wave progression V1 to V4. Meets minimal voltage criteria for LVH), BNP, Ddimer, Hemoglobin A1C, TSH, free T4, triglycerides, LDL, HDL were all negative and within normal limits. [employer] Hard[employer] Dr. Villanueva was consulted and believed that chest pain was not cardiac in origin. Echocardiogram was done on 11/10/16 but report is pending. On chest CT (11/11/16) patient found to have a 3mm right middle lobe pulmonary nodule. Patient will need follow up imaging in 12 months given former smoker status. Patient had multiple episodes of hypertensive urgency with max being 225/144. Blood pressure controlled on HCTZ 25 mg qD, Lisinopril 10 mg qD, Norvasc 5 mg qD , Lopressor 100 mg qD which patient was discharged with. During hospital course, patient found to have acute appendicitis on abdominal CT (11/13/16) which also showed no evidence of perforation or abscess. 2 mm nonobstructing stone in the right lower pole and 2mm nonobstructing stone in the left upper pole. Since this study patient had been on Zosyn 3.375 IV Q6H which ended on the night of the laparascopic appendectomy. Surgery performed in the AM. While in the hospital, patient developed a persistent headache lasting for about [address] (11/11/16) was negative. Dr. Waller (neurologist) was consulted who believed that her headaches were due to antihypertensive medications. Fioricet was recommended with relief. Patient with history of fibromyalgia and peripheral neuropathy of the lower extremities. Gabapentin 100 mg TID and Tramadol 25 mg Q6H were effective in pain control. Of note, on patient's Chest CT (11/11/16) small hiatal hernia/distal esophageal wall thickening found. Follow up with GI as an outpatient is recommended. Patient is medically stable for discharge on 11/15/16 per medical and surgical teams. This is a summary of the patient's hospital course. If more information is required, please refer to medical records. - Date & Time of H&P Date of H&P: 11/15/16 Time of H&P: 13:00 Discharge Exam - Head Exam Head Exam: ATRAUMATIC, NORMAL INSPECTION, NORMOCEPHALIC - Eye Exam Eye Exam: EOMI, PERRL - ENT Exam ENT Exam: Mucous Membranes Moist - Respiratory Exam Respiratory Exam: Clear to PA & Lateral, NORMAL BREATHING PATTERN - Cardiovascular Exam Cardiovascular Exam: REGULAR RHYTHM, +S1, +S2 - GI/Abdominal Exam GI & Abdominal Exam: Normal Bowel Sounds, Soft, Tenderness (diffuse but right> left) - Neurological Exam Neurological exam: Alert, Oriented x3 - Skin Skin Exam: Dry, Intact, Normal Color, Warm Additional comments: Abdominal dressings clean, dry, and intact Discharge Plan - Discharge Medications Prescriptions: Albuterol HFA [Ventolin HFA 90 mcg/actuation (8 g)] 2 puff IH Q6H PRN #1 inhaler PRN Reason: Wheezing amLODIPine [Norvasc] 5 mg PO DAILY #30 tab Aspirin [Aspirin Chewable] 81 mg PO DAILY 30 Days Fluticasone Propionate [Flonase] 2 spr SHIRLEY DAILY 4 Days Gabapentin [Neurontin] 100 mg PO TID 30 Days hydroCHLOROthiazide [Hydrodiuril] 25 mg PO DAILY 30 Days Lisinopril [Zestril] 10 mg PO DAILY 30 Days Metoprolol Tartrate [Lopressor] 100 mg PO DAILY 30 Days traMADol [Ultram] 25 mg PO Q6H PRN 3 Days PRN Reason: Pain, Moderate (4-7) - Follow Up Plan Condition: STABLE Disposition: HOME/ ROUTINE Instructions: Chest Pain (DC), Laparoscopic Appendectomy (DC) Additional Instructions: Patient is medically stable for discharge. Per surgery, patient is stable for discharge from their standpoint. Patient recommended to follow her PMD within 1 week of discharge and to follow up with surgery post-hospital discharge. Prescriptions include: Tylenol 650 mg PO Q6 prn pain Albuterol 1 puff Q4 prn shortness of breath, Norvasc 5 mg PO once daily for blood pressure control, Hydrochlorathiazide 25 mg PO once daily for blood pressure control Lisinopril 10 mg PO once daily for blood pressure control Metoprolol Tartrate 100 mg PO once daily for blood pressure control Fluticasone 2 sprays per nostril for 4 days to improve post nasal drip Gabapentin 100 mg PO three times daily Tramadol 25 mg PO Q6 prn pain 3 day supply only Discharge instructions explained to the patient and patient verbalizes understanding. If patient has fever, patient is advised to be evaluated in the emergency room immediately. Referrals: Trixie Villanueva MD [Staff Provider] - Puma Fernandez MD [Staff Provider] - <Mireille Jc V - Last Filed: 11/15/16 22:54> Provider - Provider Date of Admission: 11/11/16 18:52 Attending physician: Mireille Jc, Hospital Course - Lab Results Lab Results: Micro Results 11/12/16 15:26 Urine Urine Culture - Final No Growth (<1,000 CFU/ML) Most Recent Lab Values WBC 15.2 K/uL (4.8-10.8) H D 11/15/16 08:11 RBC 4.99 Mil/uL (3.80-5.20) 11/15/16 08:11 Hgb 14.0 g/dL (11.0-16.0) 11/15/16 08:11 Hct 41.3 % (34.0-47.0) 11/15/16 08:11 MCV 82.7 fL (81.0-99.0) 11/15/16 08:11 MCH 28.0 pg (27.0-31.0) 11/15/16 08:11 MCHC 33.9 g/dL (33.0-37.0) 11/15/16 08:11 RDW 14.4 % (11.5-14.5) 11/15/16 08:11 Plt Count 202 K/uL (130-400) 11/15/16 08:11 MPV 10.2 fL (7.2-11.7) 11/15/16 08:11 Neut % (Auto) 84.1 % (50.0-75.0) H 11/15/16 08:11 Lymph % (Auto) 9.0 % (20.0-40.0) L 11/15/16 08:11 Lyman % (Auto) 6.6 % (0.0-10.0) 11/15/16 08:11 Eos % (Auto) 0.1 % (0.0-4.0) 11/15/16 08:11 Baso % (Auto) 0.2 % (0.0-2.0) 11/15/16 08:11 Neut # 12.8 K/uL (1.8-7.0) H 11/15/16 08:11 Lymph # 1.4 K/uL (1.0-4.3) 11/15/16 08:11 Lyman # 1.0 K/uL (0.0-0.8) H 11/15/16 08:11 Eos # 0.0 K/uL (0.0-0.7) 11/15/16 08:11 Baso # 0.0 K/uL (0.0-0.2) 11/15/16 08:11 Neutrophils % (Manual) 90 % (50-75) H 11/15/16 08:11 Lymphocytes % (Manual) 7 % (20-40) L 11/15/16 08:11 Monocytes % (Manual) 3 % (0-10) 11/15/16 08:11 Platelet Estimate Normal (NORMAL) 11/15/16 08:11 RBC Morphology Normal 11/15/16 08:11 PT 11.9 SECONDS (9.7-12.2) 11/13/16 17:23 INR 1.1 11/13/16 17:23 APTT 33 SECONDS (21-34) 11/13/16 17:23 D-Dimer, Quantitative < 200 ng/mlDDU (0-243) 11/10/16 01:21 Sodium 132 mmol/L (132-148) 11/15/16 08:11 Potassium 3.3 mmol/L (3.6-5.2) L 11/15/16 08:11 Chloride 94 mmol/L (98-107) L 11/15/16 08:11 Carbon Dioxide 26 mmol/L (22-30) 11/15/16 08:11 Anion Gap 15 (10-20) 11/15/16 08:11 BUN 10 mg/dL (7-17) 11/15/16 08:11 Creatinine 0.7 MG/DL (0.7-1.2) 11/15/16 08:11 Est GFR ( Amer) > 60 11/15/16 08:11 Est GFR (Non-Af Amer) > 60 11/15/16 08:11 POC Glucose (mg/dL) 91 mg/dL (65-110) 11/10/16 11:50 Random Glucose 90 mg/dL (65-105) 11/15/16 08:11 Hemoglobin A1c 5.6 % (4.2-6.5) 11/11/16 08:10 Calcium 9.0 mg/dl (8.6-10.4) 11/15/16 08:11 Phosphorus 3.0 mg/dL (2.5-4.5) 11/15/16 08:11 Magnesium 1.7 mg/dL (1.6-2.3) 11/15/16 08:11 Total Bilirubin 0.8 mg/dL (0.2-1.3) 11/15/16 08:11 AST 29 U/L (14-36) 11/15/16 08:11 ALT 26 U/L (9-52) 11/15/16 08:11 Alkaline Phosphatase 44 U/L (38-126) 11/15/16 08:11 Total Creatine Kinase 50 U/L (30-135) 11/10/16 16:50 CK-MB (Mass) 0.67 ng/mL (0.0-3.38) 11/10/16 16:50 Troponin I < 0.0120 ng/mL (0.00-0.120) 11/10/16 01:21 Troponin I, Quant < 0.0120 ng/mL (0.00-0.120) 11/10/16 16:50 NT-Pro-B Natriuret Pep 74.3 pg/mL (0-900) 11/10/16 07:07 Total Protein 6.6 g/dL (6.3-8.3) 11/15/16 08:11 Albumin 3.5 g/dL (3.5-5.0) 11/15/16 08:11 Globulin 3.1 gm/dL (2.2-3.9) 11/15/16 08:11 Albumin/Globulin Ratio 1.1 (1.0-2.1) 11/15/16 08:11 Triglycerides 63 mg/dL (0-149) 11/10/16 07:07 Cholesterol 165 mg/dL (0-199) 11/10/16 07:07 LDL Cholesterol Direct 94 mg/dL (0-129) 11/10/16 07:07 HDL Cholesterol 51 mg/dL (30-70) 11/10/16 07:07 Free T4 1.13 ng/dL (0.78-2.19) 11/11/16 08:10 TSH 3rd Generation 4.26 mIU/L (0.46-4.68) 11/14/16 07:45 Urine Color Straw (YELLOW) 11/12/16 16:58 Urine Clarity Clear (Clear) 11/12/16 16:58 Urine pH 5.0 (5.0-8.0) 11/12/16 16:58 Ur Specific [place] 1.009 (1.003-1.030) 11/12/16 16:58 Urine Protein Negative mg/dL (NEGATIVE) 11/12/16 16:58 Urine Glucose (UA) Normal mg/dL (Normal) 11/12/16 16:58 Urine Ketones Negative mg/dL (NEGATIVE) 11/12/16 16:58 Urine Blood 1+ (NEGATIVE) H 11/12/16 16:58 Urine Nitrate Negative (NEGATIVE) 11/12/16 16:58 Urine Bilirubin Negative (NEGATIVE) 11/12/16 16:58 Urine Urobilinogen Normal mg/dL (0.2-1.0) 11/12/16 16:58 Ur Leukocyte Esterase Neg Jose Alberto/uL (Negative) 11/12/16 16:58 Urine WBC (Auto) 1 /hpf (0-5) 11/10/16 01:32 Urine RBC (Auto) < 1 /hpf (0-3) 11/12/16 16:58 Ur Squamous Epith Cells 3 /hpf (0-5) 11/10/16 01:32 Attending/Attestation - Attestation I have personally seen and examined this patient.: Yes I have fully participated in the care of the patient.: Yes I have reviewed all pertinent clinical information, including history, physical exam and plan: Yes Notes (Text): Patient seen, examined and case discussed with day-time resident. Patient seen during rounds today. Tolerating diet. Had both flatus and bowel movement. Pain controlled with tylenol. Patient refuses narcotic reports she is nausea. Per surgery, patient is stable to go home. (patient had acute appendicitis--> missing in resident summary above) Discharge order and discharge instructions discussed with day-time resident and patient at bedside. Patient verbalized understanding and agrees with the plan. Patient is medically stable for discharge. Per surgery, patient is stable for discharge from their standpoint. Patient recommended to follow her PMD within 1 week of discharge and to follow up with surgery post-hospital discharge. Prescriptions include: 1) Tylenol 650 mg PO Q6 prn pain 2) Albuterol 1 puff Q4 prn shortness of breath, 3) Norvasc 5 mg PO once daily for blood pressure control, 4) Hydrochlorathiazide 25 mg PO once daily for blood pressure control 5) Lisinopril 10 mg PO once daily for blood pressure control 6) Metoprolol Tartrate 100 mg PO once daily for blood pressure control 7) Fluticasone 2 sprays per nostril for 4 days to improve post nasal drip 8) Gabapentin 100 mg PO three times daily 9) Tramadol 25 mg PO Q6 prn pain 3 day supply only Patient advised she will need follow-up CT imaging to monitor pulmonary nodule, given she is a former smoker and exposed to second hand smoke. Patient advised to follow-up with PMD for GI referral for abnormal CT finding regarding esophagus. Discharge instructions explained to the patient and patient verbalizes understanding. If patient has fever, pain out of portion, patient is advised to be evaluated in the emergency room immediately. This is a summary of patient's hospitalization. Please see EMR for further details. Discharge diagnoses: 1) Acute appendicitis-->Resolved * CT Scan (11/13/16): acute appendicitis. No evidence of perforation or abscess. 2 mm nonobstructing stone in the right lower pole and 2mm nonobstructing stone in the left upper pole. No hydronephrosis or obstructive uropathy. Constipation. No evidence of bowel obstruction. * General surgery (Dr. Fernandez) on consult-->help appreciated * POD 1 Lap appendectomy * Per surgery, patient is stable for discharge today. 2) Chest Pain-->Resolved * Cardiology (Dr. Villanueva) help appreciated; patient cleared by cardiology prior to surgery CT Chest w. Contrast (11/11/16): Thoracic and abdominal aorta appear within normal limits of caliber w/o aneurysmal dilatatoin or dissection. 3 mm right middle lobe pulmonary nodule. In absence of risk factors for lung CA, no imaging required. If pt smoker, follow up CT at 12 months recommended. Small hiatal hernia/distal esophageal wall thickening. Hepatic steatosis. 16mm rounded soft tissue density adjacent to pancreatic tail similar to CT performed 01/06/12, this finding favored to reflect a splenule rather than pancreatic mass. Subcutaneous air and soft tissue stranding noted within right lower quadrant subcutaneous soft tissues, correlate for recent injections. Scoliosis. (see full report) * CXR (11/10/16) - no acute findings * ED Course: Nitro glycerin x4 and 324 aspirin given in the field by ALS on admission * EKG - NSR, poor R-wave progression V1 to V4. Meets minimal voltage criteria for LVH. * Troponin negative x 3, Ddimer <200 * BNP: 74.3; a1c: 5.6; TSH, free T4: WNL; d-dimer: negative * ADDISON: X3 negative * Lipid panel: T, Cholesterol: 165, LDL: 94, HDL: 51 * Patient to start Aspirin in one week post-surgery as cardioprotective measure 3) Impaired glucose tolerance-->Chronic * A1c: 5.6 * Will need monitoring; 1 year follow-up a1c to avoid overt diabetes 4) Persistent Headache-->resolved * resolved * Neurology (Dr. Waller) ear nose throat surgeon--->no further workup needed; signed off * CT head w/o contrast: normal CT head 5) Hx of fibromyalgia, peripheral neuropathy * Patient has has tried Lyrica, Gabapentin in the past * Ultram 25mg PO Q6H PRN 6) Pulmonary Nodule * CT Chest w. Contrast (11/11/16): In absence of risk factors for lung CA, no imaging required. If pt smoker, follow up CT at 12 months recommended. * pt is former smoker (in her 20s)-->will need follow-up imaging as outpatient 7) Abnormal Mural Thickening * CT Chest w. Contrast (11/11/16): Small hiatal hernia/distal esophageal wall thickening-->recommended to follow-up GI as outpatient 8) Hypertension * Monitor vital signs * Continue home meds: Lopressor 100mg PO qdaily * c/w HCTZ to 25mg PO Daily * c/w Lisinopril 10mg PO qdaily * contributing factor: post-operative pain 9) Asthma * Patient is not in acute exacerbation * Utilizes inhaler 2x per week during day. 1x per month at night. * Home med: Albuterol HFA 2puff PRN * monitor 10) Prophylaxis * SCDs b/l * Pepcid 20mg PO BID for GI ppx * Heart healthy diet * CXR (11/10/16) - no acute findings
[2016-11-15 15:44] VITALS: BP 119/76; PULSE 60; TEMP 97.5
--- NOTE | 2016-11-16 01:36 | OP ---
PROCEDURE DATE: 11/14/2016 PREOPERATIVE DIAGNOSIS: Acute appendicitis. POSTOPERATIVE DIAGNOSIS: Acute appendicitis. PROCEDURE: Laparoscopic appendectomy. SURGEON: Dr. Fernandez. INSOLE CHANNELER: Cheryl Clemens, PGY-1 resident. TYPE OF ANESTHESIA: General endotracheal tube anesthesia. ESTIMATED BLOOD LOSS: Around 10 mL. DRAINS: None. PATHOLOGY: Appendix was sent to the pathology. COMPLICATIONS: None. INTRAOPERATIVE FINDINGS: The patient had changes of acute appendicitis. DESCRIPTION OF PROCEDURE: On intraoperative steps. this is a 55-year-old female who was diagnosed with acute appendicitis and the patient was consented for laparoscopic appendectomy, possible open. Brought to the OR, placed supine in operating table. After induction of the anesthesia, abdomen was prepped and draped in a usual sterile fashion. Supraumbilical transverse incision was made, Naz port was placed, pneumo was created. A 5 mm port was placed The 5-mm port was placed in suprapubic region, 12-mm port was placed in left lower quadrant, grasper and dissector was introduced and appendix appeared to be mildly thickened and edematous. The mesoappendix was resected with Harmonic scalpel, base of the appendix was resected with CLAUDE and there was no pelvic or periappendicular abscess. After proper hemostasis, all the instruments were taken out, all the ports were taken out under vision, appendix was sent off the table for the pathology. Pneumo was deflated. The umbilical port site was closed in 2 layers, the fascia with 0 Vicryl interrupted sutures, skin with 4-0 Monocryl. Dry sterile dressing was applied. The patient tolerated the procedure well. Count of the instrument was correct. There was no apparent complication. The patient was extubated in OR, sent to the postanesthesia care unit in stable condition. Puma Fernandez MD
[2016-11-16] MEDS ORDERED: Potassium Chloride 20 mEq ER Tab PO ONE (10:30)
== END 2016-11-15 16:39 | disposition home or self-care (01) | DRG 883 ==
LOC: C.ER 00:45 → C.5T 02:52 → OBSVTOIN 11-11 18:52
PROVIDERS: ADMIT Hospitalist; ATTEND Hospitalist
PROC: 0DTJ4ZZ Resection of Appendix, Percutaneous Endoscopic Approach (ICD-10-PCS; principal; 2016-11-14 12:30)
DX: K35.80 Unspecified acute appendicitis (principal); K76.0 Fatty (change of) liver, not elsewhere classified; G62.9 Polyneuropathy, unspecified; R07.89 Other chest pain; I10 Essential (primary) hypertension; J45.909 Unspecified asthma, uncomplicated; K21.9 Gastro-esophageal reflux disease without esophagitis; K22.4 Dyskinesia of esophagus; K44.9 Diaphragmatic hernia without obstruction or gangrene; K59.00 Constipation, unspecified; M79.7 Fibromyalgia; M41.9 Scoliosis, unspecified; R73.02 Impaired glucose tolerance (oral); Z77.22 Contact with and (suspected) exposure to environmental tobacco smoke (acute) (chronic); Z87.891 Personal history of nicotine dependence; Z90.710 Acquired absence of both cervix and uterus

== ENCOUNTER 2016-12-29 11:30 | Emergency (ER) | payer OTHER ==
[2016-12-29 11:30] VITALS: BMI 23.0
[2016-12-29 11:40] VITALS: TEMP 97.8
[2016-12-29 12:55] LABS: BASO # 0.1 K/uL (0.0-0.2); BASO % 0.4 % (0.0-2.0); EOS % 0.1 % (0.0-4.0); HEMATOCRIT 42.6 % (34.0-47.0); LYMPH # 1.6 K/uL (1.0-4.3); LYMPH % 14.1 % (20.0-40.0); MEAN CELL VOLUME 83.3 fL (81.0-99.0); MEAN CORPUSCULAR HEMOGLOBIN 28.4 pg (27.0-31.0); MEAN PLATELET VOLUME 10.9 fL (7.2-11.7); MONO # 0.5 K/uL (0.0-0.8); MONO % 4.5 % (0.0-10.0); RED CELL DISTRIBUTION WIDTH 13.7 % (11.5-14.5); WHITE BLOOD COUNT 11.5 K/uL (4.8-10.8)
[2016-12-29 13:07] LABS: ALB/GLOB RATIO 1.1 (1.0-2.1); ALKALINE PHOSPHATASE 51 U/L (38-126); ALT/SGPT 20 U/L (9-52); AST/SGOT 19 U/L (14-36); BILIRUBIN,TOTAL 0.8 mg/dL (0.2-1.3); BLOOD UREA NITROGEN 6 mg/dL (7-17); CALCIUM 9.7 mg/dl (8.6-10.4); CARBON DIOXIDE 25 mmol/L (22-30); CHLORIDE 101 mmol/L (98-107); GFR AFRICAN-AMERICAN > 60; GLUCOSE,RANDOM 81 mg/dL (65-105); POTASSIUM 3.1 mmol/L (3.6-5.2); SODIUM 139 mmol/L (132-148); TOTAL PROTEIN 7.5 g/dL (6.3-8.3)
[2016-12-29] MEDS ORDERED: Potassium Chloride 20 mEq ER Tab PO STA (13:23)
[2016-12-29] MEDS ORDERED: Enalaprilat 2.5 MG/2 ML IVP ONE (13:24)
[2016-12-29] MEDS ORDERED: Clindamycin 600mg/50ml NS 600 MG/50 ML BAG IVPB STA (13:26)
[2016-12-29] MEDS ORDERED: Clindamycin 600mg/50ml NS 600 MG/50 ML BAG IVPB ONE (13:29)
[2016-12-29] MEDS ORDERED: Potassium Chloride 20 mEq ER Tab PO ONE (13:29)
[2016-12-29] MEDS ORDERED: Enalaprilat 2.5 MG/2 ML ONE (13:29)
[2016-12-29] MEDS ORDERED: Clindamycin 600mg/50ml D5W 600 MG/50 ML VIAL IVPB SCH (13:30)
[2016-12-29] MEDS ORDERED: Iodixanol 320 MG/ML 100 ML BOTTLE IV ONE (14:06)
--- NOTE | 2016-12-29 14:45 | PCM.RRT ---
<Ranjana Cotton - Last Filed: 12/29/16 14:54> RADIO MECHANIC APPRENTICE Nurses Assessment - Situation RADIO MECHANIC APPRENTICE Responder Arrival Time: 14:35 RADIO MECHANIC APPRENTICE Called By: Other Disciplines (CT technition) - Constitutional Appears: In Acute Distress - Head Head Exam: absent: ATRAUMATIC (right forehead and eye were swollen and the right forhead had a insect bite ) - Eyes Eye Exam: EOMI, Normal appearance, PERRL - Respiratory Exam Respiratory Exam: Clear to Ausculation Bilateral, NORMAL BREATHING PATTERN Plan - Assessment of Findings&Treatment Plan Rapid Response was called at 2:35pm by the biomass plant technician. The fill technician stated the patient received IV contrast and during the CT the patient started saying she could not swallow followed by vomiting with small tinged blood. Patient stated she received IV and oral contrast in the past and never had an adverse side effect. 20mg of Pepcid, 40mg Rosita-Medrol, 4mg of Zofran were ordered. Patient denied being nauseous and wanted to continue the CT of the head due to her head swelling. Patient will return to the emergency room after. <Mireille Jc V - Last Filed: 12/29/16 17:49> Attending/Attestation - Attestation I have personally seen and examined this patient.: Yes I have fully participated in the care of the patient.: Yes I have reviewed all pertinent clinical information, including history, physical exam and plan: Yes Notes (Text): Brief hospitalist note: * Responded to RADIO MECHANIC APPRENTICE called in CT scan by fill technician concern for patient's nausea and possible allergic reaction to dye while in CT scan. * Patient sent from ER to get CT head with IV contrast in evaluation of skin bite over right temporal forehead and right sided swelling and associated facial swelling. * I am familiar with patient from prior admission, wherein she tolerated IV contrast with her CT abdomen/pelvis PO and IV contrast in discovery of her appendicitis and had no allergic reaction noted in prior hospitalization. * Patient noted to fill technician that she felt her "throat was raw and closing up" Patient able to speak with ease, no muffled voice, joking and laughing speaking with the members of the RADIO MECHANIC APPRENTICE some of whom were familiar with her from her prior hospitalization. Patient remembers me from her prior hospitalization as well. * Patient ordered for Zofran 4mg IV for the nausea, and Solumedrol 40mg IV, Benadryl 25mg IV and Pepcid 20mg IV as preventive for allergic reaction, but have low suspicion she is allergic to the dye since I am aware she tolerated the scan/ with dye in her last visit with no adverse reaction. * Patient's ED nurse, Patria came to evaluate patient at rapid. I spoke with Dr. Doyle, ED to endorse to her colleague, Dr. Daly who is working up the patient from the emergency room.
[2016-12-29] MEDS ORDERED: MethylPREDNISolone 40 mg Vial IV ONE (15:00)
[2016-12-29] MEDS ORDERED: MethylPREDNISolone 40 mg Vial ONE (15:26)
--- NOTE | 2016-12-29 15:46 | CT ---
PROCEDURE: CT scan of the orbits dated 12/29/2016. HISTORY: Periorbital cellulitis, r/o orbital cellulitis COMPARISON: No prior study available for comparison TECHNIQUE: Contiguous helical/ transaxial CT images of the orbits were obtained following intravenous injection of approximately 70 cc of Visipaque 320 contrast. Coronal and sagittal reformats were generated. . Note that the patient developed vomiting and throat tightness and the study was therefore terminated and rapid response team called. . Note that the study is somewhat limited due to poor in contrast enhancement. Radiation dose: Total exam DLP = 799.53 mGy-cm. This CT exam was performed using one or more of the following dose reduction techniques: Automated exposure control, adjustment of the mA and/or kV according to patient size, and/or use of iterative reconstruction technique. FINDINGS: The current study reveals right infraorbital, periorbital supraorbital and inferior frontotemporal scalp swelling/infiltration consistent with this patient's history of cellulitis. No drainable subcutaneous collections are identified. Mild overlying skin thickening. No definitive evidence of postseptal collection seen at this time. Globes intact and lenses appropriately located. The optic nerves and extraocular musculature unremarkable. The visualized paranasal sinuses are well-developed and currently fairly well-aerated. There are no fluid levels seen to suggest acute sinusitis. IMPRESSION: Limited study as above. Right sided facial cellulitis which includes the periorbital infraorbital supraorbital and frontotemporal regions. . There is mild overlying skin thickening No evidence of drainable subcutaneous fluid collections. No definitive evidence of postseptal collections seen at this time. Globes are intact.
--- NOTE | 2016-12-29 16:15 | C.PDOC ---
History Of Present Illness Pt c/o lesion on right forehead that then developed swelling and pain around it. Time Seen by Provider: 12/29/16 13:09 Chief Complaint (Nursing): Abnormal Skin Integrity History Per: Patient Onset/Duration Of Symptoms: Days (about 1 week), Gradual Current Symptoms Are (Timing): Worse Location Of Injury: Right: Head Quality Of Symptoms: Painful, Swollen, Draining Severity: Moderate Additional History Per: Prior Records Past Medical History Reviewed: Historical Data, Nursing Documentation, Vital Signs Vital Signs: Last Vital Signs Temp 97.8 F 12/29/16 11:36 Pulse 65 12/29/16 15:53 Resp 18 12/29/16 15:53 BP 139/96 H 12/29/16 15:53 Pulse Ox 98 12/29/16 15:53 - Medical History PMH: Anemia, Asthma, Fibromyalgia, Fractures (RIGHT ARM), HTN, Peripheral Edema (DUE TO FIBROMYALGIA) Surgical History: Endoscopy - [facility] Procedures ENDOSC POLYPECTOMY OF LG INTEST (07/20/99) ESOPHAGOGASTRODUODENOSCOPY [EGD] W/CLOSED BIOPSY (07/20/99) LAPAROSCOPIC ROBOTIC ASSISTED PROCEDURE (02/11/14) LAPAROSCOPIC TOTAL ABDOMINAL HYSTERECTOMY (02/11/14) PACKED CELL TRANSFUSION (01/09/14) RESECTION OF APPENDIX, PERCUTANEOUS ENDOSCOPIC APPROACH (11/11/16) Family History: States: Unknown Family Hx - Social History Hx Tobacco Use: No Hx Alcohol Use: No Hx Substance Use: No - Immunization History Hx Tetanus Toxoid Vaccination: No Hx Influenza Vaccination: Yes Hx Pneumococcal Vaccination: No Review Of Systems Except As Marked, All Systems Reviewed And Found Negative. Constitutional: Negative for: Fever, Weakness ENT: Negative for: Nose Congestion, Throat Pain Cardiovascular: Negative for: Chest Pain Respiratory: Negative for: Shortness of Breath Gastrointestinal: Positive for: Nausea. Negative for: Abdominal Pain, Diarrhea Musculoskeletal: Negative for: Neck Pain Skin: Positive for: Rash, Lesions Neurological: Positive for: Headache. Negative for: Weakness, Numbness, Incoordination, Change in Speech, Confusion, Seizures, Altered Mental Status Physical Exam - Physical Exam Appears: Non-toxic, No Acute Distress Skin: Normal Color, Warm, Dry, No Rash Head: Atraumatic, Swelling (Lesion on right forehead looks like drained small abscess, with surrounding edema with erythema) Eye(s): bilateral: PERRL, EOMI, right: Eyelid Inflammation Ear(s): Bilateral: Normal Oral Mucosa: Moist, No Drooling, No Trismus Neck: Normal ROM, Supple Lymphatic: No Adenopathy Cardiovascular: Rhythm Regular Respiratory: Normal Breath Sounds, No Accessory Muscle Use Gastrointestinal/Abdominal: Soft, No Tenderness Back: No CVA Tenderness Extremity: Normal ROM Neurological/Psych: Oriented x3, Normal Speech, Normal Cognition, Normal Cranial Nerves, Normal Motor, Normal Sensation ED Course And Treatment - Laboratory Results Result Diagrams: 12/29/16 12:52 12/29/16 12:52 Interpretation Of Abnormal: Mild hypokalemia, otherwise unremarkable. O2 Sat by Pulse Oximetry: 98 Pulse Ox Interpretation: Normal - CT Scan/US CT orbits with contrast Other Rad Studies (CT/US): Read By Radiologist, Radiology Report Reviewed CT/US Interpretation: IMPRESSION: Limited study as above. Right sided facial cellulitis which includes the periorbital infraorbital supraorbital and frontotemporal regions. . There is mild overlying skin thickening No evidence of drainable subcutaneous fluid collections. No definitive evidence of postseptal collections seen at this time. Globes are intact. Progress Note: Pt had a possible reaction to the IV contrast with in CT scan where she started vomiting. No itching, hives or throat swelling. Therefore not an allergic reaction. Reassessment Condition: Improved Progress - Interventions Interventions:: Observation - Medications Administered Intravenous: Antihypertensive, Other (Clindamycin) - Data Reviewed Data Reviewed: Lab, Diagnostic imaging, Old records - Patient Status Patient status: Mostly improved - Continuity of Care Discussed patient case with:: Patient, ED Nurse - Patient Plan Patient Plan: Discharge, F/U with PCP, Continue present meds Disposition Counseled Patient/Family Regarding: Studies Performed, Diagnosis, Need For Followup, Rx Given - Disposition Referrals: Amanda Cazares MD [Staff Provider] - Disposition: HOME/ ROUTINE Disposition Time: 16:18 Condition: IMPROVED Additional Instructions: Follow up with your doctor within 1-2 days. Return to the ER if you develop fever, worsening of symptoms or if you have any other concerns. Prescriptions: Clindamycin [Cleocin] 300 mg PO QID #40 cap Instructions: Periorbital Cellulitis in Adults (ED) Forms: [email or web address] (Citizen Of [place]) Print Language: CHINESE - Clinical Impression Clinical Impression: Periorbital cellulitis of right eye, Uncontrolled hypertension
[2016-12-29 16:33] VITALS: BP 130/90; PULSE 61; RESP 16; O2SAT 99
== END 2016-12-29 16:33 | disposition home or self-care (01) ==
LOC: C.ER 11:30
DX: L03.213 Periorbital cellulitis (principal); I10 Essential (primary) hypertension; E87.6 Hypokalemia
CPT/HCPCS: 70481; 80053; 85025; 96365; 96375; 99285; J2405; J2920; Q9967

== ENCOUNTER 2018-03-26 15:07 | Emergency (ER) | payer OTHER ==
[2018-03-26 15:08] VITALS: BMI 23.0
--- NOTE | 2018-03-26 16:42 | C.PDOC ---
History Of Present Illness 57 y/o female w,/PMhx of HTN, presents to the ER complaining of epistaxis and elevated blood pressure levels. Patient states that her blood pressure was 210/110 at home and she had profuse epistaxis. Patient reports that she had 2nd episode of epistaxis in the ER waiting room. She notes that she has headache. She had similar episodes in the past with elevated blood pressure levels. However, the elevated blood pressure level were associated with ruptured appendix during the last episode. She notes that her bp medications were changes about 1 month ago. Denies having fever, chills, headache, dizziness, CP, SOB, nausea, vomiting, and abdominal pain. Time Seen by Provider: 03/26/18 16:27 Chief Complaint (Nursing): High Blood Pressure History Per: Patient History/Exam Limitations: no limitations Onset/Duration Of Symptoms: Days Current Symptoms Are (Timing): Still Present Severity: Moderate Past Medical History Reviewed: Historical Data, Nursing Documentation, Vital Signs Vital Signs: Last Vital Signs Temp 98.5 F 03/26/18 15:27 Pulse 72 03/26/18 15:27 Resp 18 03/26/18 15:27 BP 203/120 H 03/26/18 15:27 Pulse Ox 96 03/26/18 15:27 - Medical History PMH: Anemia, Asthma, Fibromyalgia, Fractures (RIGHT ARM), HTN, Peripheral Edema (DUE TO FIBROMYALGIA) Denies: Chronic Kidney Disease Surgical History: Appendectomy, Endoscopy - [facility] Procedures ENDOSC POLYPECTOMY OF LG INTEST (07/20/99) ESOPHAGOGASTRODUODENOSCOPY [EGD] W/CLOSED BIOPSY (07/20/99) LAPAROSCOPIC ROBOTIC ASSISTED PROCEDURE (02/11/14) LAPAROSCOPIC TOTAL ABDOMINAL HYSTERECTOMY (02/11/14) PACKED CELL TRANSFUSION (01/09/14) RESECTION OF APPENDIX, PERCUTANEOUS ENDOSCOPIC APPROACH (11/11/16) Family History: States: No Known Family Hx - Social History Hx Tobacco Use: No Hx Alcohol Use: No Hx Substance Use: No - Immunization History Hx Tetanus Toxoid Vaccination: No Hx Influenza Vaccination: No Hx Pneumococcal Vaccination: No Review Of Systems Except As Marked, All Systems Reviewed And Found Negative. Constitutional: Negative for: Fever, Chills ENT: Positive for: Other (epistaxis( currently resolved)) Cardiovascular: Negative for: Palpitations Respiratory: Negative for: Shortness of Breath Gastrointestinal: Negative for: Nausea, Vomiting, Abdominal Pain Neurological: Negative for: Headache, Dizziness Physical Exam - Physical Exam Appears: Non-toxic, No Acute Distress, Other (high blood pressure) Skin: Normal Color, Warm Head: Atraumatic, Normacephalic Eye(s): bilateral: Normal Inspection Nose: Other (dried blood to bilateral nares) Oral Mucosa: Moist Neck: Supple Chest: Symmetrical Cardiovascular: Rhythm Regular Respiratory: Normal Breath Sounds, No Rales, No Rhonchi, No Wheezing Gastrointestinal/Abdominal: Soft, No Tenderness, No Guarding, No Rebound, Other (obese) Extremity: Normal ROM, Other (no pitting edema) Neurological/Psych: Oriented x3, Normal Speech ED Course And Treatment O2 Sat by Pulse Oximetry: 96 (RA) Pulse Ox Interpretation: Normal Medical Decision Making Medical Decision Making: Plan: --EKG --Hydralazine PO --Tylenol PO Disposition Counseled Patient/Family Regarding: Diagnosis - Disposition Disposition: HOME/ ROUTINE Disposition Time: 19:05 Condition: STABLE Forms: [employer] (Serbian) - Clinical Impression Clinical Impression: Hypertension, Bleeding nose - Scribe Statement The provider has reviewed the documentation as recorded by the Scribe Martinez Conti Provider Attestation: All medical record entries made by the Scribe were at my direction and personally dictated by me. I have reviewed the chart and agree that the record accurately reflects my personal performance of the history, physical exam, medical decision making, and the department course for this patient. I have also personally directed, reviewed, and agree with the discharge instructions and disposition. Physician Patient Turnover Patient Signed Over To: Dee Dee Joshi Handoff Comments: s/p hypertensive nose bleed, c/o head ache and congestion. Given Tramadol and Claritin, re-eval.
[2018-03-26 17:12] VITALS: TEMP 98.4
[2018-03-26 21:19] VITALS: O2SAT 100
[2018-03-26 21:29] VITALS: BP 152/107; PULSE 60; RESP 17
--- NOTE | 2018-03-27 21:55 | CARD ---
APPROVED REPORT Date of service: 03/26/2018 EKG Measurement Heart [id number] <Conclusion> Normal sinus rhythm Minimal voltage criteria for LVH, may be normal variant Borderline ECG
== END 2018-03-26 22:30 | disposition home or self-care (01) ==
LOC: C.ER 15:07
DX: I10 Essential (primary) hypertension (principal); R04.0 Epistaxis

== ENCOUNTER 2018-06-05 09:07 | Outpatient (CLI) | payer OTHER | END 2018-06-05 09:08 | disposition home or self-care (01) | LOC: C.USIC 09:07 ==

== ENCOUNTER 2018-06-11 14:30 | Outpatient (CLI) | payer OTHER | END 2018-06-11 14:31 | disposition home or self-care (01) | LOC: C.CTH 14:31 | DX: R31.29 Other microscopic hematuria (principal) ==

== ENCOUNTER 2018-06-11 16:43 | Emergency (ER) | payer OTHER ==
[2018-06-11 16:44] VITALS: BMI 29.0
[2018-06-11 16:53] VITALS: BP 182/106; PULSE 64; RESP 16; TEMP 98.1; O2SAT 99
--- NOTE | 2018-06-11 17:19 | C.PDOC ---
History Of Present Illness Patient is a 57 year old female who is brought into the ED after rapid response from a CAT scan with IV contrast earlier today. Patient states that she felt itchiness on the roof of her mouth as well as tongue tingling. Patient was brought to the ED without treatment and her symptoms resolved captain waiter/waitress. She states that she has had similar adverse reactions with prior CAT scans. Patient denies any trouble swallowing, dizziness, rash, SOB, or CP. Time Seen by Provider: 06/11/18 16:49 Chief Complaint (Nursing): Allergic Reaction History Per: Patient History/Exam Limitations: no limitations Onset/Duration Of Symptoms: Hrs Current Symptoms Are (Timing): Gone Possible Cause: Other (CAT Scan ) Associated Symptoms: Itching (roof of mouth ), Other (tingling tongue ). denies: Skin Rash, Trouble Swallowing, Dizziness, Chest Pain Home/EMS Treatment: None Recent travel outside of the [place]: No Additional History Per: Patient Past Medical History Reviewed: Historical Data, Nursing Documentation, Vital Signs Vital Signs: Last Vital Signs Temp 98.1 F 06/11/18 16:47 Pulse 64 06/11/18 16:47 Resp 16 06/11/18 16:47 BP 182/106 H 06/11/18 16:47 Pulse Ox 99 06/11/18 16:47 - Medical History PMH: Anemia, Asthma, Fibromyalgia, Fractures (RIGHT ARM), HTN, Peripheral Edema (DUE TO FIBROMYALGIA) Denies: Chronic Kidney Disease Surgical History: Appendectomy, Endoscopy - [facility] Procedures ENDOSC POLYPECTOMY OF LG INTEST (07/20/99) ESOPHAGOGASTRODUODENOSCOPY [EGD] W/CLOSED BIOPSY (07/20/99) LAPAROSCOPIC ROBOTIC ASSISTED PROCEDURE (02/11/14) LAPAROSCOPIC TOTAL ABDOMINAL HYSTERECTOMY (02/11/14) PACKED CELL TRANSFUSION (01/09/14) RESECTION OF APPENDIX, PERCUTANEOUS ENDOSCOPIC APPROACH (11/11/16) Family History: States: Unknown Family Hx - Social History Hx Tobacco Use: No Hx Alcohol Use: No Hx Substance Use: No - Immunization History Hx Tetanus Toxoid Vaccination: No Hx Influenza Vaccination: No Hx Pneumococcal Vaccination: No Review Of Systems ENT: Positive for: Other (itchiness on roof of mouth and tongue tingling ). Negative for: Throat Swelling Cardiovascular: Negative for: Chest Pain Respiratory: Negative for: Shortness of Breath Skin: Negative for: Rash Neurological: Negative for: Dizziness Physical Exam - Physical Exam Appears: Non-toxic, No Acute Distress Skin: Normal Color, Warm, Dry, No Rash Head: Atraumatic, Normacephalic Oral Mucosa: Moist Tongue: Normal Appearing, No Swelling Throat: Normal, Other (normal voice, pharynx, roof of mouth ) Chest: Symmetrical, No Deformity Cardiovascular: Rhythm Regular Respiratory: Normal Breath Sounds, No Rales, No Rhonchi, No Wheezing Extremity: Normal ROM Neurological/Psych: Oriented x3, Normal Speech, Normal Cognition ED Course And Treatment O2 Sat by Pulse Oximetry: 99 (on RA) Pulse Ox Interpretation: Normal - CT Scan/US CAT A&P Other Rad Studies (CT/US): Read By Radiologist, Radiology Report Reviewed CT/US Interpretation: IMPRESSION: 1. Bilateral non-obstructing renal calculi as described above. 2. Status post appendectomy. 3. Status post hysterectomy. 4. Evidence of advanced degenerative disc disease at L5-S1. Medical Decision Making Medical Decision Making: Plan: CAT A&P Benadryl 50mg PO Pepcid 20mg PO Zofran 4mg PO Prednisone 40mg PO adverse drug rxn NOT allergic drug rxn no rash, no edema s/s resolved FIELD SUPPORT REP in ED h/o same d/w PMD, h/o same. NO CT's ordered in ED Patient is adamant about wanting to be discharged. 16:50. Discussed with PMD . Explained that patient is doing well and is to be discharged. Disposition Doctor Will See Patient In The: Office Counseled Patient/Family Regarding: Studies Performed, Diagnosis - Disposition Referrals: [facility] [Outside] [facility] [place] [Outside] [facility] [Outside] Disposition: HOME/ ROUTINE Disposition Time: 17:19 Condition: GOOD Additional Instructions: pepcid and benadryl PO as needed for itching every 6 hours. Instructions: Adverse Drug Reactions, Adult (DC) Forms: [facility] (Belizean) - Clinical Impression Clinical Impression: Adverse drug reaction - Scribe Statement The provider has reviewed the documentation as recorded by the Scribcatracho Pérez All medical record entries made by the Scribe were at my direction and personally dictated by me. I have reviewed the chart and agree that the record accurately reflects my personal performance of the history, physical exam, medical decision making, and the department course for this patient. I have also personally directed, reviewed, and agree with the discharge instructions and disposition.
--- NOTE | 2018-06-11 18:02 | PCM.RRT ---
PACKING TRACTOR MACHINE OPERATOR Nurses Assessment - Situation Date: 06/11/18 Time PACKING TRACTOR MACHINE OPERATOR was called: 16:03 PACKING TRACTOR MACHINE OPERATOR Location:: CT Scan PACKING TRACTOR MACHINE OPERATOR Reason for Call: Looks Sicker - IV IV Inserted during PACKING TRACTOR MACHINE OPERATOR?: No - Respiratory PACKING TRACTOR MACHINE OPERATOR Delivery Method: Room Air CPR started during PACKING TRACTOR MACHINE OPERATOR?: No I.Reason for PACKING TRACTOR MACHINE OPERATOR - A) Acute Change in Patient: Subjective: House doctor note PACKING TRACTOR MACHINE OPERATOR called for patient in CT scan room Pt was following up as an outpatient for CT scan, received small amount of IV contrast when she suddenly began feeling nauseous and vomited. Proceeded to feel some perioral tingling. No perioral swelling noted, no erythema, no hives, no pharyngeal obstruction. Initial vital signs: BP 208/120, HR 68 bpm, RR 20, 98% O2 sat on RA. Patient was alert, oriented, in no acute distress, verbal, able to follow commands appropriately. Patient was transported to ED for further monitoring and care. - Neurological Status (Select all that apply): Alert, Oriented, Verbal, Follows Commands - Constitutional Appears: Non-toxic, No Acute Distress - Head Head Exam: ATRAUMATIC, NORMAL INSPECTION, NORMOCEPHALIC - Eyes Eye Exam: EOMI, Normal appearance, PERRL - Respiratory Exam Respiratory Exam: Clear to Ausculation Bilateral, NORMAL BREATHING PATTERN. absent: Accessory Muscle Use, Rales, Rhonchi, Wheezes, Respiratory Distress, Stridor - Cardiovascular Exam Cardiovascular Exam: REGULAR RHYTHM, +S1, +S2 - GI/Abdominal Exam GI & Abdominal Exam: Soft, Normal Bowel Sounds. absent: Distended, Firm, Guarding, Rigid, Tenderness, Rebound - Neurological Exam Neurological Exam: Alert, Awake, Oriented x3 - Extremities Exam Extremities Exam: Full ROM, Normal Capillary Refill, Normal Inspection. absent: Calf Tenderness, Pedal Edema
--- NOTE | 2018-06-12 15:30 | CT ---
Date of service: 06/11/2018 PROCEDURE: CT Abdomen and Pelvis.. HISTORY: KIDNEY STONES / HEMATURIA COMPARISON: Comparison made with prior CT scan of the abdomen and pelvis dated 11/13/2016. TECHNIQUE: Contiguous axial images of the abdomen and pelvis performed in standard fashion without oral or intravenous contrast material. Additional 2D sagittal and coronal reformats generated. Radiation dose: Total exam DLP = 0.0 mGy-cm. This CT exam was performed using one or more of the following dose reduction techniques: Automated exposure control, adjustment of the mA and/or kV according to patient size, and/or use of iterative reconstruction technique. FINDINGS: LOWER THORAX: Lung bases clear. No infiltrate effusion or basilar pneumothorax. Heart size mildly enlarged. No significant pericardial effusion. Small hiatal hernia... LIVER: Unremarkable. No gross lesion or ductal dilatation. GALLBLADDER AND BILE DUCTS: Gallbladder is contracted with slight thick-walled appearance. No obvious intraluminal gallbladder calculi.. PANCREAS: Unremarkable. No mass. No ductal dilatation. SPLEEN: Unremarkable. No splenomegaly. ADRENALS: There are no adrenal lesions seen. KIDNEYS AND URETERS: Kidneys demonstrate relatively symmetric size. There is a at very small approximately 2.4 mm nonobstructing calcification lower pole collecting system right kidney. There is an approximately 3 mm nonobstructing calcification pole left kidney and another approximately 2.8 mm calcification mid-lower pole collecting system. No evidence of hydronephrosis. Redemonstrated is a small exophytic cyst anterior cortex mid-lower pole right kidney. BLADDER: Urinary bladder appears incompletely distended with minimal wall thickening likely due to incomplete distention and muscular hypertrophy.. REPRODUCTIVE: Hysterectomy. APPENDIX: Apparent appendectomy with radiopaque sutures seen along the posterior inferior margin of the cecal wall. BOWEL: Evaluation of the bowel slightly limited due to incomplete opacification. Stomach is incompletely distended with slight thick-walled appearance. Visualized loops of small bowel exhibit normal contour and caliber no evidence of acute mechanical small bowel obstruction. Moderately large amount of stool seen within the cecum at ascending and transverse colon consistent with mild fecal retention/constipation. PERITONEUM: Small fat containing umbilical hernia. No evidence of free intraperitoneal air. No free or loculated fluid collections. LYMPH NODES: Unremarkable. No enlarged lymph nodes. VASCULATURE: Unremarkable. No aortic aneurysm. No significant aortic atherosclerotic calcification or mural plaque present. BONES: Mild multilevel degenerative spondylosis of the lumbar and to a lesser degree lower thoracic spine. Sclerotic changes both SI joints left greater than right OTHER FINDINGS: None. IMPRESSION: Small bilateral nonobstructing renal calculi. Small exophytic cyst right kidney as described. Appendectomy and hysterectomy changes. Findings consistent with mild constipation.
== END 2018-06-11 17:30 | disposition home or self-care (01) ==
LOC: C.ER 16:43
DX: L29.9 Pruritus, unspecified (principal); T50.905A Adverse effect of unspecified drugs, medicaments and biological substances, initial encounter